=== PATIENT | male | born 1950 | race Caucasian/White ===

== ENCOUNTER → 2017-04-28 | Outpatient (CLI) | payer MEDICARE, OTHER ==
--- NOTE | 2017-04-28 18:47 | XCELERA REPORT ---
[address] [address] Transthoracic Echocardiogram Report Name: LUCI NAQVI SR Age: 67 yrs Gender: Male : 1950 Patient Status: Outpatient Patient Location: [facility] Study Date: 04/28/2017 10:13 AM Height: 66 in Weight: 196 lb BSA: 2.0 m2 Procedure: A two-dimensional transthoracic echocardiogram with color flow and Doppler was performed. Study Quality: Technically suboptimal. Reason For Study: CHEST PAIN History: CHEST PAIN. Ordering Physician: CAREN HAYNES Performed By: Milagros Fox Interpretation Summary The left ventricle is normal in size. There is normal left ventricular wall thickness. LV EF is > THAN 60% Left ventricular systolic function is normal. Doppler measurements suggest normal left ventricular diastolic function The left ventricular wall motion is normal. There is no thrombus. The right ventricle is grossly normal size. The right atrium is normal. The left atrial size is normal. There is no vegetation seen on the mitral valve. There is no mitral valve stenosis. There is a trace amount of mitral regurgitation There is no aortic valvular vegetation. There is mild aortic stenosis There is a peak gradient of OF 26 MM , AND MEAN GRADIENT OF 14 mm of Hg. There is no LVOT obstruction. No aortic regurgitation is present. There is no tricuspid stenosis. There is a trace amount of tricuspid regurgitation No significant Pulmonary Hypertension .RVSP is 32 mm of Hg, and is just above the upper limits of 30 mm of Hg. The pulmonic valve is not well visualized. There is no pericardial effusion. MMode/2D Measurements & Calculations RVDd: 2.7 cm LVIDd: 3.9 cm FS: 31.7 % Ao root diam: 2.3 cm IVSd: 1.1 cm LVIDs: 2.6 cm EDV(Teich): 64.6 ml LVPWd: 1.1 cm ESV(Teich): 25.6 ml Ao root area: 4.3 cm2 EF(Teich): 60.4 % LA dimension: 3.8 cm LVOT diam: 2.2 cm LVOT area: 3.9 cm2 Doppler Measurements & Calculations MV E max mary: MV P1/2t max mary: Ao V2 max: LV V1 max P.7 cm/sec 102.2 cm/sec 254.9 cm/sec 5.1 mmHg MV A max mary: MV P1/2t: 59.4 msec Ao max PG: LV V1 mean P.8 cm/sec MVA(P1/2t): 3.7 cm2 26.0 mmHg 2.7 mmHg MV E/A: 1.1 MV dec slope: Ao V2 mean: LV V1 max: 504.2 cm/sec2 167.0 cm/sec 113.3 cm/sec MV dec time: 0.20 secAo mean PG: LV V1 mean: 13.5 mmHg 74.6 cm/sec Ao V2 VTI: LV V1 VTI: 50.5 cm 26.3 cm MARIA ESTHER(I,D): 2.0 cm2 MARIA ESTHER(V,D): 1.7 cm2 SV(LVOT): 102.6 ml PA V2 max: TR max mary: 87.9 cm/sec 260.6 cm/sec PA max P.1 mmHg TR max P.2 mmHg Left Ventricle The left ventricle is normal in size. There is normal left ventricular wall thickness. LV EF is > THAN 60%. Left ventricular systolic function is normal. Doppler measurements suggest normal left ventricular diastolic function. The left ventricular wall motion is normal. There is no thrombus. Right Ventricle The right ventricle is grossly normal size. Atria The right atrium is normal. The left atrial size is normal. Mitral Valve There is no evidence of mitral valve prolapse. There is no vegetation seen on the mitral valve. There is no mitral valve stenosis. There is a trace amount of mitral regurgitation. Aortic Valve There is no aortic valvular vegetation. There is mild aortic stenosis. There is a peak gradient of OF 26 MM , AND MEAN GRADIENT OF 14 mm of Hg. There is no LVOT obstruction. No aortic regurgitation is present. Tricuspid Valve There is no tricuspid stenosis. There is a trace amount of tricuspid regurgitation. No significant Pulmonary Hypertension .RVSP is 32 mm of Hg, and is just above the upper limits of 30 mm of Hg. Pulmonic Valve The pulmonic valve is not well visualized. Great Vessels The aortic root is not well visualized. Effusions There is no pericardial effusion. : CAREN HAYNES > Caren Haynes
== END ==
LOC: SP 09:49
PROVIDERS: ATTEND Specialist
DX: R07.9 Chest pain, unspecified (principal)
CPT/HCPCS: 93306

== ENCOUNTER 2017-08-03 13:17 | Emergency (ER) | payer MEDICARE ==
[2017-08-03] MEDS ORDERED: KETOROLAC TROMETHAMINE 60 MG/2 ML SDV IV ONE (14:49)
[2017-08-03] MEDS ORDERED: NORMAL SALINE 1000 ML 1,000 ML IV ONE (14:49)
[2017-08-03] MEDS ORDERED: ONDANSETRON HCL INJ/PF 4 MG/2 ML SDV IV ONE (14:49)
--- NOTE | 2017-08-03 14:51 | RADIOLOGY REPORT (SQ) ---
EXAM DESCRIPTION: CHEST PA/LAT COMPLETED DATE/TIME: 08/03/2017 2:42 pm REASON FOR STUDY: cough, fever COMPARISON: 04/17/2007 EXAM PARAMETERS: NUMBER OF VIEWS: two views TECHNIQUE: Digital Frontal and Lateral radiographic views of the chest acquired. RADIATION DOSE: NA LIMITATIONS: none FINDINGS: LUNGS AND PLEURA: No opacities, masses or pneumothorax. No pleural effusion. MEDIASTINUM AND HILAR STRUCTURES: No masses or contour abnormalities. HEART AND VASCULAR STRUCTURES: Heart normal size. No evidence for failure. BONES: No acute findings. HARDWARE: None in the chest. OTHER: No other significant finding. IMPRESSION: NO SIGNIFICANT RADIOGRAPHIC FINDING IN THE CHEST. TECHNICAL DOCUMENTATION: JOB ID: [id number] [employer]- All Rights Reserved
--- NOTE | 2017-08-03 14:55 | ER Document Report ---
ED Flu Like - General Chief Complaint: Flu Symptoms Stated Complaint: FLU SYMPTOMS Time Seen by Provider: 08/03/17 14:21 Mode of Arrival: Ambulatory Information source: Patient TRAVEL OUTSIDE OF THE [place] IN LAST 30 DAYS: No - HPI Onset: Last week Severity: Moderate Notes: Patient arrives with complaints of "flulike symptoms ". States that he has been sick for the last 4 days. He reports that he has had intermittent fevers, although he has not actually taken his temperature. He is complained of nausea , but denies any vomiting. He has had some diarrhea, but denies any blood in his stools. He denies any abdominal pain. He has had a cough, he states that he is coughing up dark green sputum. Denies any blurred or loss vision, numbness tingling or weakness. He denies any chest pain. Planes of mild shortness of breath, but states that this is normal for him. He has a past medical history of hypertension, high cholesterol, diabetes. Is a former smoker who quit smoking approximately 4 months ago. Tells me that his normal heart rate is between 101 110. He denies any rashes. He did not receive a flu shot this year. States that although he is feeling better than he was a few days ago, he still feels sick. He denies any dysuria or hematuria. Denies any dizziness. He has no other complaints at this time. - Related Data Allergies/Adverse Reactions: codeine [Codeine] Allergy (Severe, Verified 08/03/17 13:19) swelling/redness Past Medical History - Social History Smoking Status: Unknown if Ever Smoked Chew tobacco use (# tins/day): No Frequency of alcohol use: None Drug Abuse: None Family History: None Patient has suicidal ideation: No Patient has homicidal ideation: No - Past Medical History Cardiac Medical History: Reports: Hx Hypercholesterolemia, Hx Hypertension - AMLODIPINE/BENAZIPRIL, HCTZ, LISINOPRIL Denies: Hx Heart Attack Pulmonary Medical History: Denies: Hx Asthma Neurological Medical History: Denies: Hx Cerebrovascular Accident, Hx Seizures Endocrine Medical History: Reports: Hx Diabetes Mellitus Type 2 Renal/ Medical History: Denies: Hx Peritoneal Dialysis GI Medical History: Reports: Hx Diverticulitis. Denies: Hx Hepatitis, Hx Hiatal Hernia, Hx Ulcer Musculoskeltal Medical History: Infectious Medical History: Denies: Hx Hepatitis Past Surgical History: Denies: Hx Open Heart Surgery, Hx Pacemaker - Immunizations Immunizations up to date: Yes Review of Systems - Review of Systems -: Yes All other systems reviewed and negative Physical Exam - Vital signs Vitals: Temp Pulse Resp BP Pulse Ox 98.3 F 109 H 18 116/99 H 97 08/03/17 13:23 08/03/17 13:23 08/03/17 13:23 08/03/17 13:23 08/03/17 13:23 - Notes Notes: GENERAL: alert, cooperative, nontoxic, no distress. HEAD: normocephalic, atraumatic EYES: conjunctiva pink without discharge, no external redness or swelling. EARS: no external swelling, no external redness. TMs pearly vazquez with no redness or perforation. NOSE: atraumatic, no external swelling MOUTH/THROAT: mucous membranes moist and pink, posterior pharynx without erythema, swelling, exudate. No trismus or drooling. NECK: soft, supple, full range of motion, no meningismus. CHEST: no distress, lungs clear and equal throughout. No wheezing, rales, rhonchi. CARDIAC: regular rate and rhythm, no murmur, normal capillary refill, normal pulses. No peripheral edema noted. ABDOMEN: Soft, nontender. No mass. No rebound tenderness or guarding. BACK: full range of motion, no CVA tenderness. EXTREMITIES: full range of motion of all extremities. No redness, no swelling. NEURO: alert and oriented x 3, no focal deficits, full range of motion of all extremities. PYSCH: appropriate mood, affect. Patient is cooperative. SKIN: pink, warm, dry, no rash. Course - Re-evaluation Re-evalutation: 08/03/17 16:18 Patient is nontoxic appearing with stable vitals. The patient is feeling better after IV fluids and Zofran. Patient states that his normal heart rate is 100 110, therefore I am not concerned about his heart rate on his vital signs. His workup in the emergency department shows no pneumonia on x-ray, lab work is unremarkable for any significant findings. His influenza screen was negative. Based on the high incidence of influenza that we are seen at this time and his age and risk factors, I will still prophylactically place him on Tamiflu. He was instructed to follow-up with his primary care doctor if he does not feel that he is improved in the next 5 days, sooner if he starts to feel worse in any way, develops higher fevers, difficulty breathing, or has any further concerns. The patient's emergency department workup and current diagnosis were explained to the patient and or family. Follow-up instructions were provided. Medications if prescribed were discussed. Instructions for when to return to the emergency department including specific worrisome symptoms were discussed with the patient and/or family. The patient is noted to have elevated blood pressure during today's emergency department visit. The patient was informed of this finding. The patient was instructed that this may be related to pre-hypertension and requires further evaluation with a primary care provider. The patient has no hypertensive symptoms at this time. - Vital Signs Vital signs: Temp Pulse Resp BP Pulse Ox 98.3 F 110 H 18 116/99 H 96 08/03/17 13:23 08/03/17 14:25 08/03/17 13:23 08/03/17 13:23 08/03/17 14:25 - Laboratory Result Diagrams: 08/03/17 15:25 08/03/17 15:25 Laboratory results interpreted by me: 08/03/17 08/03/17 15:25 15:25 WBC 13.6 H Absolute Neutrophils 9.0 H Absolute Monocytes 1.6 H Potassium 3.4 L BUN 23 H Calcium 10.7 H - Diagnostic Test Radiology reviewed: Image reviewed, Reports reviewed - Negative chest x-ray per the radiologist Discharge - Discharge Clinical Impression: Viral syndrome Condition: Stable Disposition: HOME, SELF-CARE Instructions: Influenza ([facility]) [id number], Viral Syndrome ([facility]) Additional Instructions: Take medications as prescribed. Drink plenty of water. Follow-up with your doctor if not better in 5 days, sooner for worsening symptoms, high fever, difficulty breathing, or for any further concerns. Your blood pressure was elevated during today's visit. Have this rechecked with your doctor. Prescriptions: Oseltamivir Phosphate [Tamiflu 75 mg Capsule] 75 mg PO BID #10 capsule Referrals: YARITZA ROSA MD [Primary Care Provider] - Follow up as needed
[2017-08-03 15:20] LABS: APPEARANCE,URINE CLEAR; BILIRUBIN,URINE NEGATIVE (NEGATIVE); COLOR,URINE YELLOW; GLUCOSE, URINE NEGATIVE (NEGATIVE); KETONES,URINE NEGATIVE (NEGATIVE); LEUKOCYTE ESTERASE,URINE NEGATIVE (NEGATIVE); NITRITE,URINE NEGATIVE (NEGATIVE); PROTEIN,URINE NEGATIVE (NEGATIVE); URINE SPECIFIC GRAVITY 1.014; UROBILINOGEN,URINE NEGATIVE mg/dL (<2.0)
[2017-08-03 15:33] LABS: A TYPE INFLUENZA AG NEGATIVE (NEGATIVE); B INFLUENZA AG NEGATIVE (NEGATIVE)
[2017-08-03 15:39] LABS: ABSOLUTE BASOPHILS # (AUTO) 0.1 10^3/uL (0.0-0.2); ABSOLUTE EOSINOPHILS # (AUTO) 0.4 10^3/uL (0.0-0.6); ABSOLUTE LYMPHOCYTES (AUTO) 2.5 10^3/uL (0.5-4.7); ABSOLUTE MONOCYTES (AUTO) 1.6 10^3/uL (0.1-1.4); BASOPHILS % (AUTO) 0.8 % (0-2); HEMATOCRIT 43.6 % (37.9-51.0); MEAN CORPUSCULAR HEMOGLOBIN 30.2 pg (27.0-33.4); MEAN CORPUSCULAR HGB CONC 34.4 g/dL (32.0-36.0); MEAN CORPUSCULAR VOLUME 88 fl (80-97); MONOCYTES % (AUTO) 12.1 % (3-13); PLATELET COUNT 236 10^3/uL (150-450); RED BLOOD COUNT 4.97 10^6/uL (4.35-5.55); RED CELL DISTRIBUTION WIDTH 13.5 % (11.5-14.0); SEGMENTED NEUTROPHILS % (AUTO) 66.1 % (42-78); TOTAL CELLS COUNTED % (AUTO) 100 %; WHITE BLOOD COUNT 13.6 10^3/uL (4.0-10.5)
[2017-08-03 15:57] LABS: ALANINE AMINOTRANSFERASE 40 U/L (21-72); ALBUMIN 4.5 g/dL (3.5-5.0); ALKALINE PHOSPHATASE 85 U/L (38-126); ANION GAP 14 (5-19); ASPARTATE AMINO TRANSFERASE 25 U/L (17-59); BILIRUBIN,DIRECT 0.3 mg/dL (0.0-0.4); BILIRUBIN,TOTAL 0.5 mg/dL (0.2-1.3); BLOOD UREA NITROGEN 23 mg/dL (7-20); CALCIUM 10.7 mg/dL (8.4-10.2); CARBON DIOXIDE 25 mmol/L (22-30); CHLORIDE 102 mmol/L (98-107); GLUCOSE 101 mg/dL (75-110); POTASSIUM 3.4 mmol/L (3.6-5.0); SODIUM 141.1 mmol/L (137-145); TOTAL PROTEIN 7.8 g/dL (6.3-8.2)
[2017-08-03 16:45] VITALS: BP 99/61
== END 2017-08-03 16:45 | disposition home or self-care (01) ==
LOC: ER 13:17
DX: B34.9 Viral infection, unspecified (principal); R11.0 Nausea; R19.7 Diarrhea, unspecified; R05 Cough; R06.02 Shortness of breath; I10 Essential (primary) hypertension; E11.9 Type 2 diabetes mellitus without complications; Z87.891 Personal history of nicotine dependence; Z88.5 Allergy status to narcotic agent
CPT/HCPCS: 99284; 96374; 96375; 36415; 85025; 80053; 81001; 87804; 71046; J1885; J2405; J7030

== ENCOUNTER → 2017-11-27 | Outpatient (CLI) | payer MEDICARE ==
--- NOTE | 2017-11-27 11:23 | RADIOLOGY REPORT (SQ) ---
EXAM DESCRIPTION: CHEST 2 VIEWS COMPLETED DATE/TIME: 11/27/2017 10:53 am REASON FOR STUDY: R06.02 SHORTNESS OF BREATH R07.9 CHEST PAIN, UNSPECIFIED COMPARISON: 08/03/2017 EXAM PARAMETERS: NUMBER OF VIEWS: two views TECHNIQUE: Digital Frontal and Lateral radiographic views of the chest acquired. RADIATION DOSE: NA LIMITATIONS: none FINDINGS: LUNGS AND PLEURA: No opacities, masses or pneumothorax. No pleural effusion. MEDIASTINUM AND HILAR STRUCTURES: No masses or contour abnormalities. HEART AND VASCULAR STRUCTURES: Heart normal size. No evidence for failure. BONES: No acute findings. HARDWARE: None in the chest. OTHER: No other significant finding. IMPRESSION: NO ACUTE RADIOGRAPHIC FINDING IN THE CHEST. TECHNICAL DOCUMENTATION: JOB ID: [id number] [employer]- All Rights Reserved Reading location - IP/workstation name: [email or web address]
== END ==
LOC: RAD 10:40
PROVIDERS: ATTEND Internal Medicine
DX: R07.9 Chest pain, unspecified (principal); R06.02 Shortness of breath
CPT/HCPCS: 71046

== ENCOUNTER 2018-04-15 11:05 | Emergency (ER) | payer MEDICARE ==
[2018-04-15] MEDS ORDERED: NORMAL SALINE 1000 ML 1,000 ML IV ONE (11:34)
--- NOTE | 2018-04-15 11:36 | ER Document Report ---
ED Medical Screen (RME) - General Chief Complaint: Flank Pain Stated Complaint: BACK PAIN Time Seen by Provider: 04/15/18 11:30 Notes: 68 years old male with a history of hemochromatosis, diverticulitis, diabetes, hypertension presents today with sudden onset of left flank pain radiating to the groin since Friday. Associated with nausea no vomiting. Denies any hematuria or dysuria or frequency. Denies any fever but chills on and off. Did not have any bowel movement for 2 days On examination-benign TRAVEL OUTSIDE OF THE [place] IN LAST 30 DAYS: No - Related Data Allergies/Adverse Reactions: codeine [Codeine] Allergy (Severe, Verified 04/15/18 11:05) swelling/redness Past Medical History - Past Medical History Cardiac Medical History: Reports: Hx Hypercholesterolemia, Hx Hypertension - AMLODIPINE/BENAZIPRIL, HCTZ, LISINOPRIL Denies: Hx Heart Attack Pulmonary Medical History: Denies: Hx Asthma Neurological Medical History: Denies: Hx Cerebrovascular Accident, Hx Seizures Endocrine Medical History: Reports: Hx Diabetes Mellitus Type 2 Renal/ Medical History: Denies: Hx Peritoneal Dialysis GI Medical History: Reports: Hx Diverticulitis. Denies: Hx Hepatitis, Hx Hiatal Hernia, Hx Ulcer Musculoskeltal Medical History: Infectious Medical History: Denies: Hx Hepatitis Past Surgical History: Denies: Hx Open Heart Surgery, Hx Pacemaker - Immunizations Immunizations up to date: Yes Physical Exam - Vital signs Vitals: Temp Pulse Resp BP Pulse Ox 97.9 F 78 19 129/79 H 98 04/15/18 11:09 04/15/18 11:09 04/15/18 11:09 04/15/18 11:09 04/15/18 11:09 Course - Vital Signs Vital signs: Temp Pulse Resp BP Pulse Ox 97.9 F 78 19 129/79 H 98 04/15/18 11:09 04/15/18 11:09 04/15/18 11:09 04/15/18 11:09 04/15/18 11:09 Doctor's Discharge - Discharge Referrals: YARITZA ROSA MD [Primary Care Provider] - Follow up as needed
[2018-04-15 12:09] LABS: ABSOLUTE BASOPHILS # (AUTO) 0.1 10^3/uL (0.0-0.2); ABSOLUTE EOSINOPHILS # (AUTO) 0.5 10^3/uL (0.0-0.6); ABSOLUTE LYMPHOCYTES (AUTO) 2.2 10^3/uL (0.5-4.7); ABSOLUTE MONOCYTES (AUTO) 1.1 10^3/uL (0.1-1.4); ABSOLUTE NEUT (AUTO) 7.9 10^3/uL (1.7-8.2); BASOPHILS % (AUTO) 0.6 % (0-2); EOSINOPHILS % (AUTO) 4.2 % (0-6); HEMOGLOBIN 16.2 g/dL (13.5-17.0); LYMPHOCYTES % (AUTO) 18.7 % (13-45); MEAN CORPUSCULAR HEMOGLOBIN 32.1 pg (27.0-33.4); MEAN CORPUSCULAR HGB CONC 35.2 g/dL (32.0-36.0); MEAN CORPUSCULAR VOLUME 91 fl (80-97); MONOCYTES % (AUTO) 9.4 % (3-13); PLATELET COUNT 232 10^3/uL (150-450); RED BLOOD COUNT 5.04 10^6/uL (4.35-5.55); RED CELL DISTRIBUTION WIDTH 13.3 % (11.5-14.0); SEGMENTED NEUTROPHILS % (AUTO) 67.1 % (42-78); TOTAL CELLS COUNTED % (AUTO) 100 %; WHITE BLOOD COUNT 11.7 10^3/uL (4.0-10.5)
[2018-04-15 12:11] LABS: APPEARANCE,URINE CLEAR; BILIRUBIN,URINE NEGATIVE (NEGATIVE); COLOR,URINE YELLOW; GLUCOSE, URINE NEGATIVE (NEGATIVE); KETONES,URINE NEGATIVE (NEGATIVE); LEUKOCYTE ESTERASE,URINE TRACE (NEGATIVE); NITRITE,URINE NEGATIVE (NEGATIVE); PROTEIN,URINE NEGATIVE (NEGATIVE); URINE SPECIFIC GRAVITY 1.015; UROBILINOGEN,URINE NEGATIVE mg/dL (<2.0)
[2018-04-15 12:21] LABS: ALANINE AMINOTRANSFERASE 49 U/L (21-72); ALBUMIN 4.6 g/dL (3.5-5.0); ALKALINE PHOSPHATASE 76 U/L (38-126); ANION GAP 11 (5-19); ASPARTATE AMINO TRANSFERASE 37 U/L (17-59); BILIRUBIN,DIRECT 0.5 mg/dL (0.0-0.4); BILIRUBIN,TOTAL 0.7 mg/dL (0.2-1.3); BLOOD UREA NITROGEN 15 mg/dL (7-20); CARBON DIOXIDE 29 mmol/L (22-30); CHLORIDE 100 mmol/L (98-107); GLUCOSE 117 mg/dL (75-110); LIPASE 33.1 U/L (23-300); POTASSIUM 4.1 mmol/L (3.6-5.0); SODIUM 139.9 mmol/L (137-145); TOTAL PROTEIN 8.1 g/dL (6.3-8.2)
--- NOTE | 2018-04-15 12:24 | RADIOLOGY REPORT (SQ) ---
EXAM DESCRIPTION: CT LTD RENAL STONE PROTOCOL ON COMPLETED DATE/TIME: 04/15/2018 12:07 pm REASON FOR STUDY: Left flank pain COMPARISON: None. TECHNIQUE: CT scan of the abdomen and pelvis performed without intravenous or oral contrast. Images reviewed with lung, soft tissue, and bone windows. Reconstructed coronal and sagittal MPR images revi ewed. All images stored on PACS. All CT scanners at this facility use dose modulation, iterative reconstruction, and/or weight based d osing when appropriate to reduce radiation dose to as low as reasonably achievable (ALARA). [facility]: Dose Right [facility]: CareDose [facility]: Dose Right [facility]: Teradose 4D [facility]: Smart Vivartes RADIATION DOSE: CT Rad equipment meets quality standard of care and radiation dose reduction techniq ues were employed. CTDIvol: 11.6 mGy. DLP: 612 mGy-cm.mGy. LIMITATIONS: None. FINDINGS: A 7 mm ureteral stone is present along the left mid 3rd ureter at the level of the left L3 transverse process. This causes mild left hydronephrosis and upper hydroureter and mild perinephric stranding. Elsewhere in the left kidney, no other intrarenal stones are present. No gross masses. 1 cm hemorrh agic cyst posterior left mid pole kidney axial image 32. No other ureteral calculi are present on the left. LOWER CHEST: Tiny hiatal hernia. Calcified aortic valve. NON-CONTRASTED LIVER, SPLEEN, ADRENALS: Fatty infiltration of the liver. Spleen, adrenal glands unre markable PANCREAS: No masses. No peripancreatic inflammatory changes. GALLBLADDER: No identified stones by CT criteria. No inflammatory changes to suggest cholecystitis. RIGHT KIDNEY AND URETER: No suspicious masses. Assessment limited by lack of IV contrast. No signif icant calcifications. No hydronephrosis or hydroureter. LEFT KIDNEY AND URETER: As above AORTA AND RETROPERITONEUM: No aneurysm. No retroperitoneal masses or adenopathy. BOWEL AND PERITONEAL CAVITY: No obvious masses or inflammatory changes. No free fluid. Colon diverti culi without CT signs of acute diverticulitis APPENDIX: Normal. PELVIS, BLADDER, AND ABDOMINAL WALL:No abnormal masses. No free fluid. Bladder normal. BONES: No significant findings. OTHER: No other significant finding. IMPRESSION: 7 mm left mid 3rd ureteral calculus causing mild left hydronephrosis and upper hydrouret er COMMENT: Quality ID # [id number]: Final reports with documentation of one or more dose reduction techniques (e.g., Automated exposure control, adjustment of the mA and/or kV according to patient size, use of iterative reconstruction technique) TECHNICAL DOCUMENTATION: JOB ID: [id number] [employer]- All Rights Reserved Reading location - IP/workstation name: [email or web address]
--- NOTE | 2018-04-15 12:39 | ER Document Report ---
ED General - General Chief Complaint: Flank Pain Stated Complaint: BACK PAIN Time Seen by Provider: 04/15/18 11:30 TRAVEL OUTSIDE OF THE [place] IN LAST 30 DAYS: No - HPI Notes: Patient is a 68-year-old male that presents to the emergency department for chief complaint of left flank pain. Patient reports constant pain in his left low flank that radiates into his left lower quadrant for the last 2 days. He states he had a pain similar 4 days ago that completely resolved and then recurred. He reports associated nausea but denies any vomiting. He denies fevers or chills. He states he has had kidney stones as a child but has not had any in 40+ years. He denies any dysuria or hematuria Past Medical History: Hypertension, hyperlipidemia, diabetes, hemochromatosis Past Surgical History: Neck cyst removal Social History: Denies drugs alcohol and tobacco Family History: Reviewed and noncontributory for presenting illness Allergies: Reviewed, see documented allergy list. REVIEW OF SYSTEMS: CONSTITUTIONAL : No fever No chills No diaphoresis No recent illness EENT: No vision changes No congestion No sore throat CARDIOVASCULAR: No chest pain No palpitations RESPIRATORY: No shortness of breath No cough No difficulty breathing GASTROINTESTINAL: No abdominal pain nausea No vomiting No diarrhea Left flank pain GENITOURINARY: No dysuria No hematuria No difficulty urinating MUSCULOSKELETAL: No back pain No leg pain No arm pain SKIN: No rashes No lesions LYMPHATIC: No swollen, enlarged glands. NEUROLOGICAL: No lightheadedness No headache No weakness No paresthesias PSYCHIATRIC: No anxiety No depression PHYSICAL EXAMINATION: Vital signs reviewed, nursing noted reviewed. GENERAL: Well-appearing, well-nourished and in no acute distress. HEAD: Atraumatic, normocephalic. EYES: Eyes appear normal, extraocular movements intact, sclera anicteric, conjunctiva are normal. ENT: nares patent, oropharynx clear without exudates. Moist mucous membranes. NECK: Normal range of motion, supple without lymphadenopathy LUNGS: Breath sounds clear to auscultation bilaterally and equal. No wheezes rales or rhonchi. HEART: Regular rate and rhythm without murmurs ABDOMEN: Left CVA tenderness, Soft, abdomen nontender, normoactive bowel sounds. No rebound, guarding, or rigidity. No masses appreciated. EXTREMITIES: Nontender, good range of motion, no pitting or edema. NEUROLOGICAL: No focal neurological deficits. Moves all extremities spontaneously Motor and sensory grossly intact on exam. PSYCH: Normal mood, normal affect. SKIN: Warm, Dry, normal turgor, no rashes or lesions noted on exposed skin - Related Data Allergies/Adverse Reactions: codeine [Codeine] Allergy (Severe, Verified 04/15/18 11:05) swelling/redness Past Medical History - Social History Smoking Status: Former Smoker Family History: None Patient has suicidal ideation: No Patient has homicidal ideation: No - Past Medical History Cardiac Medical History: Reports: Hx Hypercholesterolemia, Hx Hypertension - AMLODIPINE/BENAZIPRIL, HCTZ, LISINOPRIL Denies: Hx Heart Attack Pulmonary Medical History: Denies: Hx Asthma Neurological Medical History: Denies: Hx Cerebrovascular Accident, Hx Seizures Endocrine Medical History: Reports: Hx Diabetes Mellitus Type 2 Renal/ Medical History: Denies: Hx Peritoneal Dialysis GI Medical History: Reports: Hx Diverticulitis. Denies: Hx Hepatitis, Hx Hiatal Hernia, Hx Ulcer Musculoskeletal Medical History: Infectious Medical History: Denies: Hx Hepatitis Past Surgical History: Denies: Hx Open Heart Surgery, Hx Pacemaker - Immunizations Immunizations up to date: Yes Review of Systems - Review of Systems Notes: Dictated Physical Exam - Vital signs Vitals: Temp Pulse Resp BP Pulse Ox 97.9 F 78 19 129/79 H 98 04/15/18 11:09 04/15/18 11:09 04/15/18 11:09 04/15/18 11:09 04/15/18 11:09 - Notes Notes: Dictated Course - Re-evaluation Re-evalutation: 04/15/18 12:39 Vitals reviewed and stable. Patient given IV hydration. He is declining any further pain medication. CT scan shows 7 mm left ureterolithiasis. There is no renal failure or urinary tract infection. Patient will be given strainer, Flomax, and Percocet. He was referred to urology for close follow-up if symptoms are not resolving. Discharged home in stable condition. Laboratory 04/15/18 04/15/18 04/15/18 11:49 11:49 11:49 WBC 11.7 H RBC 5.04 Hgb 16.2 Hct 46.0 MCV 91 MCH 32.1 MCHC 35.2 RDW 13.3 Plt Count 232 Seg Neutrophils % 67.1 Lymphocytes % 18.7 Monocytes % 9.4 Eosinophils % 4.2 Basophils % 0.6 Absolute Neutrophils 7.9 Absolute Lymphocytes 2.2 Absolute Monocytes 1.1 Absolute Eosinophils 0.5 Absolute Basophils 0.1 Sodium 139.9 Potassium 4.1 Chloride 100 Carbon Dioxide 29 Anion Gap 11 BUN 15 Creatinine 0.84 Est GFR ( Amer) > 60 Est GFR (Non-Af Amer) > 60 Glucose 117 H Calcium 10.0 Total Bilirubin 0.7 Direct Bilirubin 0.5 H Neonat Total Bilirubin Not Reportable Neonat Direct Bilirubin Not Reportable Neonat Indirect Bili Not Reportable AST 37 ALT 49 Alkaline Phosphatase 76 Total Protein 8.1 Albumin 4.6 Lipase 33.1 Urine Color YELLOW Urine Appearance CLEAR Urine pH 6.0 Ur Specific [place] 1.015 Urine Protein NEGATIVE Urine Glucose (UA) NEGATIVE Urine Ketones NEGATIVE Urine Blood SMALL H Urine Nitrite NEGATIVE Urine Bilirubin NEGATIVE Urine Urobilinogen NEGATIVE Ur Leukocyte Esterase TRACE H Urine WBC (Auto) 2 Urine RBC (Auto) 10 Squamous Epi Cells Auto <1 Urine Mucus (Auto) OCC Urine Ascorbic Acid NEGATIVE Limited or Localized CT 04/15/18 11:35 IMPRESSION: 7 mm left mid 3rd ureteral calculus causing mild left hydronephrosis and upper hydroureter - Vital Signs Vital signs: Temp Pulse Resp BP Pulse Ox 97.9 F 78 19 129/79 H 98 04/15/18 11:09 04/15/18 11:09 04/15/18 11:09 04/15/18 11:09 04/15/18 11:09 - Laboratory Result Diagrams: 04/15/18 11:49 04/15/18 11:49 Laboratory results interpreted by me: 04/15/18 04/15/18 04/15/18 11:49 11:49 11:49 WBC 11.7 H Glucose 117 H Direct Bilirubin 0.5 H Urine Blood SMALL H Ur Leukocyte Esterase TRACE H Discharge - Discharge Clinical Impression: Ureterolithiasis Condition: Stable Disposition: HOME, SELF-CARE Instructions: Kidney Stone ([facility]) Additional Instructions: Please return to the emergency department if you have any worsening, or concern of your symptoms. Please return to the emergency department if you develop chest pain, difficulty breathing, severe abdominal pain, or ongoing vomiting. Please follow-up with your primary care physician in 2-3 days and any other recommended physicians. If prescribed, take all medications as directed. If you have any questions or concerns do not hesitate to return the emergency department for evaluation. [] Prescriptions: Oxycodone HCl/Acetaminophen [Percocet 5-325 mg Tablet] 1 tab PO Q4 PRN #15 tab PRN Reason: Pain Scale Of 5 Tamsulosin HCl [Flomax 0.4 mg Cap.sr] 0.4 mg PO DAILY #7 cap.sr.24h Referrals: [facility] [Provider Group] - Follow up in 3-5 days YARITZA ROSA MD [Primary Care Provider] - Follow up as needed
[2018-04-15] MEDS ORDERED: KETOROLAC TROMETHAMINE INJ/PF 30 MG/1 ML SDV IV ONE (12:41)
[2018-04-15 13:04] VITALS: BP 138/81
== END 2018-04-15 13:02 | disposition home or self-care (01) ==
LOC: ER 11:05
DX: N13.2 Hydronephrosis with renal and ureteral calculous obstruction (principal); R11.0 Nausea; I10 Essential (primary) hypertension; E11.9 Type 2 diabetes mellitus without complications; Z87.891 Personal history of nicotine dependence
CPT/HCPCS: 99284; 96361; 96374; 36415; 83690; 85025; 80053; 81001; 76380; J1885

== ENCOUNTER 2019-05-08 14:50 | Observation (INO) | payer MEDICARE ==
--- NOTE | 2019-05-08 15:09 | ER Document Report ---
ED Medical Screen (RME) - General Chief Complaint: Facial Droop Stated Complaint: NUMBNESS Time Seen by Provider: 05/08/19 15:01 Primary Care Provider: YARITZA ROSA MD [Primary Care Provider] - Follow up as needed Mode of Arrival: Ambulatory Information source: Patient Notes: Patient presents with concern about possible stroke. Patient states that he was walking in the patel up around 130 and felt like he was having numbness to the right side of the face and the left upper extremity. Patient also had headache at the time but is uncertain if the headache was due to hunger. Patient states that family felt as though he had right facial drooping. Patient states that after eating lunch his headache resolved. hx: Diabetes, hypertension, hemochromatosis, calcifications in the heart I have greeted and performed a rapid initial assessment of this patient. A comprehensive ED assessment and evaluation of the patient, analysis of test results and completion of the medical decision making process will be conducted by additional ED providers. TRAVEL OUTSIDE OF THE [place] IN LAST 30 DAYS: No - Related Data Allergies/Adverse Reactions: codeine [Codeine] Allergy (Severe, Verified 04/15/18 11:05) swelling/redness Past Medical History - Past Medical History Cardiac Medical History: Reports: Hx Hypercholesterolemia, Hx Hypertension - AMLODIPINE/BENAZIPRIL, HCTZ, LISINOPRIL Denies: Hx Heart Attack Pulmonary Medical History: Denies: Hx Asthma Neurological Medical History: Denies: Hx Cerebrovascular Accident, Hx Seizures Endocrine Medical History: Reports: Hx Diabetes Mellitus Type 2 Renal/ Medical History: Denies: Hx Peritoneal Dialysis GI Medical History: Reports: Hx Diverticulitis. Denies: Hx Hepatitis, Hx Hiatal Hernia, Hx Ulcer Musculoskeltal Medical History: Infectious Medical History: Denies: Hx Hepatitis Past Surgical History: Denies: Hx Open Heart Surgery, Hx Pacemaker - Immunizations Immunizations up to date: Yes Physical Exam - Vital signs Vitals: Temp Pulse Resp BP Pulse Ox 97.5 F 105 H 16 102/67 97 05/08/19 14:58 05/08/19 14:58 05/08/19 14:58 05/08/19 14:58 05/08/19 14:58 - General General appearance: Appears well, Alert Notes: No obvious facial droop, patient does have fullness concerning for swelling to the right lower mandibular area, altered sensation right side of face and left upper arm - Neurological Cognition: Normal Yamilet Coma Scale Eye Opening: Spontaneous [place] Coma Scale Verbal: Oriented [place] Coma Scale Motor: Obeys Commands [place] Coma Scale Total: 15 Speech: Normal Cranial nerves: Normal. No: Facial palsy Course - Vital Signs Vital signs: Temp Pulse Resp BP Pulse Ox 97.5 F 105 H 16 102/67 97 05/08/19 14:58 05/08/19 14:58 05/08/19 14:58 05/08/19 14:58 05/08/19 14:58 Doctor's Discharge - Discharge Referrals: YARITZA ROSA MD [Primary Care Provider] - Follow up as needed
--- NOTE | 2019-05-08 15:25 | RADIOLOGY REPORT (SQ) ---
EXAM DESCRIPTION: CHEST SINGLE VIEW COMPLETED DATE/TIME: 05/08/2019 3:12 pm REASON FOR STUDY: R facial numbness, LUE numb COMPARISON: 11/27/2017 EXAM PARAMETERS: NUMBER OF VIEWS: One view. TECHNIQUE: Single frontal radiographic view of the chest acquired. RADIATION DOSE: NA LIMITATIONS: None. FINDINGS: LUNGS AND PLEURA: No opacities, masses or pneumothorax. No pleural effusion. MEDIASTINUM AND HILAR STRUCTURES: No masses. Contour normal. HEART AND VASCULAR STRUCTURES: Heart normal in size. Normal vasculature. BONES: No acute findings. HARDWARE: None in the chest. OTHER: No other significant finding. IMPRESSION: NO ACUTE RADIOGRAPHIC FINDING IN THE CHEST. TECHNICAL DOCUMENTATION: JOB ID: [id number] [employer]- All Rights Reserved Reading location - IP/workstation name: [email or web address]
--- NOTE | 2019-05-08 15:42 | RADIOLOGY REPORT (SQ) ---
EXAM DESCRIPTION: CT HEAD WITHOUT COMPLETED DATE/TIME: 05/08/2019 3:28 pm REASON FOR STUDY: R facial numbness, LUE numb COMPARISON: None. TECHNIQUE: Axial images acquired through the brain without intravenous contrast. Images reviewed wi th bone, brain and subdural windows. Additional sagittal and coronal reconstructions were generated. Images stored on PACS. All CT scanners at this facility use dose modulation, iterative reconstruction, and/or weight based d osing when appropriate to reduce radiation dose to as low as reasonably achievable (ALARA). [facility]: Dose Right [facility]: CareDose [facility]: Dose Right [facility]: Teradose 4D [facility]: Smart [employer] RADIATION DOSE: 1043 mGy cm LIMITATIONS: None. FINDINGS: VENTRICLES: Normal size and contour. CEREBRUM: No masses. No hemorrhage. No midline shift. There is generally mild white matter hypoden sity with a more focal area in the posterior right hull radiata (series 2, image 20). CEREBELLUM: No masses. No hemorrhage. No alteration of density. No evidence for acute infarction. EXTRAAXIAL SPACES: No fluid collections. No masses. ORBITS AND GLOBE: No intra- or extraconal masses. Normal contour of globe without masses. CALVARIUM: No fracture. PARANASAL SINUSES: No fluid or mucosal thickening. SOFT TISSUES: No mass or hematoma. OTHER: No other significant finding. IMPRESSION: There is generally mild white matter hypodensity with a more focal area in the posterior right hull radiata (series 2, image 20). Although such lesions are in general likely to represent chronic small vessel white matter disease, this particular area corresponds to stated clinical sympt omatology. Consider MRI to more sensitively evaluate for acute diffusion restricting infarction EVIDENCE OF ACUTE STROKE: NO. COMMENT: Quality ID # [id number]: Final reports with documentation of one or more dose reduction techniques (e.g., Automated exposure control, adjustment of the mA and/or kV according to patient size, use of iterative reconstruction technique) TECHNICAL DOCUMENTATION: JOB ID: [id number] [employer]- All Rights Reserved Reading location - IP/workstation name: [email or web address]
[2019-05-08 16:09] LABS: ABSOLUTE BASOPHILS # (AUTO) 0.2 10^3/uL (0.0-0.2); ABSOLUTE EOSINOPHILS # (AUTO) 0.4 10^3/uL (0.0-0.6); ABSOLUTE LYMPHOCYTES (AUTO) 2.6 10^3/uL (0.5-4.7); ABSOLUTE MONOCYTES (AUTO) 1.4 10^3/uL (0.1-1.4); ABSOLUTE NEUT (AUTO) 9.3 10^3/uL (1.7-8.2); BASOPHILS % (AUTO) 1.3 % (0-2); EOSINOPHILS % (AUTO) 2.6 % (0-6); HEMATOCRIT 49.6 % (37.9-51.0); HEMOGLOBIN 16.8 g/dL (13.5-17.0); INTERNATIONAL RATION (INR) 1.02; LYMPHOCYTES % (AUTO) 18.7 % (13-45); MEAN CORPUSCULAR HEMOGLOBIN 30.7 pg (27.0-33.4); MEAN CORPUSCULAR HGB CONC 33.9 g/dL (32.0-36.0); MEAN CORPUSCULAR VOLUME 91 fl (80-97); MONOCYTES % (AUTO) 10.3 % (3-13); PARTIAL THROMBOPLASTIN TIME 29.6 SEC (23.5-35.8); PLATELET COUNT 235 10^3/uL (150-450); PROTHROMBIN TIME 13.4 SEC (11.4-15.4); RED BLOOD COUNT 5.47 10^6/uL (4.35-5.55); RED CELL DISTRIBUTION WIDTH 13.5 % (11.5-14.0); SEGMENTED NEUTROPHILS % (AUTO) 67.1 % (42-78); TOTAL CELLS COUNTED % (AUTO) 100 %; WHITE BLOOD COUNT 13.9 10^3/uL (4.0-10.5)
[2019-05-08] MEDS ORDERED: NORMAL SALINE 1000 ML 1,000 ML IV ONE (16:11)
[2019-05-08 16:28] LABS: ALBUMIN 4.9 g/dL (3.5-5.0); ALKALINE PHOSPHATASE 86 U/L (38-126); ANION GAP 15 (5-19); ASPARTATE AMINO TRANSFERASE 42 U/L (17-59); BILIRUBIN,DIRECT 0.1 mg/dL (0.0-0.4); BILIRUBIN,TOTAL 0.5 mg/dL (0.2-1.3); BLOOD UREA NITROGEN 25 mg/dL (7-20); CALCIUM 10.9 mg/dL (8.4-10.2); CARBON DIOXIDE 28 mmol/L (22-30); CHLORIDE 98 mmol/L (98-107); CREATINE KINASE 140 U/L (55-170); GLUCOSE 167 mg/dL (75-110); POTASSIUM 3.9 mmol/L (3.6-5.0); TOTAL PROTEIN 8.7 g/dL (6.3-8.2)
[2019-05-08 16:38] LABS: CREATINE KINASE MB 1.44 ng/mL (<4.55)
[2019-05-08 16:39] LABS: TROPONIN I < 0.012 ng/mL
[2019-05-08] MEDS ORDERED: ASPIRIN 81 MG TABLET, CHEWABLE PO ONE (16:42)
--- NOTE | 2019-05-08 16:51 | ER Document Report ---
ED Neuro Symptoms/Deficit - General Chief Complaint: Facial Droop Stated Complaint: NUMBNESS Time Seen by Provider: 05/08/19 15:01 Mode of Arrival: Ambulatory Notes: RME NOTE: Patient presents with concern about possible stroke. Patient states that he was walking in the patel up around 130 and felt like he was having numbness to the right side of the face and the left upper extremity. Patient also had headache at the time but is uncertain if the headache was due to hunger. Patient states that family felt as though he had right facial drooping. Patient states that after eating lunch his headache resolved. MY HPI: Patient is a 61-year-old male history of type 2 diabetes, hypertension, hyperlipidemia, hemochromatosis presents to the emergency department for concerns of a stroke. Patient states that approximately 1330 this afternoon he was in the patel. States he is a kiana. States he noticed some numbness to the right side of his face as well as some numbness to the left upper arm. Patient voices when he inevitably got back to the car he looked in the mirror and felt as though his right side had a facial droop. Family in the room also noted patient had slurred speech at that time. Patient was complaining of a generalized headache. States he was thought he was hungry so he ate something. States he no longer had a headache and the numbness in the left arm had resolved. Patient's denying any chest pain, shortness of breath, diaphoresis. Upon my examination patient has a NIH scale of 0. Patient's states that the right lower cheek looks "puffy." She is denying any facial droop at this time. Patient does not have any teeth the back right lower side. Is denying any dental pain, gum pain. Patient voices he is out in the patel often because he is a kiana. Patient's denying any tick bites or finding any ticks on his body. TRAVEL OUTSIDE OF THE [place] IN LAST 30 DAYS: No - Related Data Allergies/Adverse Reactions: codeine [Codeine] Allergy (Severe, Verified 04/15/18 11:05) swelling/redness Past Medical History - General Information source: Patient - Social History Smoking Status: Unknown if Ever Smoked Family History: None Patient has suicidal ideation: No Patient has homicidal ideation: No - Past Medical History Cardiac Medical History: Reports: Hx Hypercholesterolemia, Hx Hypertension - AMLODIPINE/BENAZIPRIL, HCTZ, LISINOPRIL Denies: Hx Heart Attack Pulmonary Medical History: Denies: Hx Asthma Neurological Medical History: Denies: Hx Cerebrovascular Accident, Hx Seizures Endocrine Medical History: Reports: Hx Diabetes Mellitus Type 2 Renal/ Medical History: Denies: Hx Peritoneal Dialysis GI Medical History: Reports: Hx Diverticulitis. Denies: Hx Hepatitis, Hx Hiatal Hernia, Hx Ulcer Musculoskeletal Medical History: Infectious Medical History: Denies: Hx Hepatitis Past Surgical History: Denies: Hx Open Heart Surgery, Hx Pacemaker - Immunizations Immunizations up to date: Yes Review of Systems - Review of Systems Constitutional: denies: Fever EENT: See HPI Cardiovascular: See HPI Respiratory: See HPI Gastrointestinal: No symptoms reported Genitourinary: No symptoms reported Male Genitourinary: No symptoms reported Musculoskeletal: See HPI Skin: No symptoms reported Hematologic/Lymphatic: No symptoms reported Neurological/Psychological: See HPI Physical Exam - Vital signs Vitals: Temp Pulse Resp BP Pulse Ox 97.5 F 105 H 16 102/67 97 05/08/19 14:58 05/08/19 14:58 05/08/19 14:58 05/08/19 14:58 05/08/19 14:58 - Notes Notes: GENERAL: Alert, interacts well. No acute distress. HEAD: Normocephalic, atraumatic. EYES: Pupils equal, round, and reactive to light. Extraocular movements intact. ENT: Oral mucosa moist, tongue midline. NECK: Full range of motion. Supple. Trachea midline. LUNGS: Clear to auscultation bilaterally, no wheezes, rales, or rhonchi. No respiratory distress. HEART: Regular rate and rhythm. No murmur ABDOMEN: Soft, non-tender. Non-distended. Bowel sounds present in all 4 quadrants. EXTREMITIES: Moves all 4 extremities spontaneously. No edema, normal radial and dorsalis pedis pulses bilaterally. No cyanosis. 5 out of 5 strength noted all 4 extremities. BACK: no cervical, thoracic, lumbar midline tenderness. No saddle anesthesia, normal distal neurovascular exam. NEUROLOGICAL: Alert and oriented x3. Normal speech. cranial nerves II through XII grossly intact. PSYCH: Normal affect, normal mood. SKIN: Warm, dry, normal turgor. No rashes or lesions noted. NIH scale 0 Course - Re-evaluation Re-evalutation: 05/08/19 16:55 Laboratory 05/08/19 05/08/19 05/08/19 15:46 15:50 15:50 WBC 13.9 H RBC 5.47 Hgb 16.8 Hct 49.6 MCV 91 MCH 30.7 MCHC 33.9 RDW 13.5 Plt Count 235 Lymph % (Auto) 18.7 [place] % (Auto) 10.3 Eos % (Auto) 2.6 Baso % (Auto) 1.3 Absolute Neuts (auto) 9.3 H Absolute Lymphs (auto) 2.6 Absolute Monos (auto) 1.4 Absolute Eos (auto) 0.4 Absolute Basos (auto) 0.2 Seg Neutrophils % 67.1 PT 13.4 INR 1.02 APTT 29.6 Sodium Potassium Chloride Carbon Dioxide Anion Gap BUN Creatinine Est GFR ( Amer) Est GFR (MDRD) Non-Af Glucose POC Glucose 162 H Calcium Total Bilirubin Direct Bilirubin Neonat Total Bilirubin Neonat Direct Bilirubin Neonat Indirect Bili AST ALT Alkaline Phosphatase Creatine Kinase CK-MB (CK-2) Troponin I Total Protein Albumin 05/08/19 05/08/19 15:50 15:50 WBC RBC Hgb Hct MCV MCH MCHC RDW Plt Count Lymph % (Auto) [place] % (Auto) Eos % (Auto) Baso % (Auto) Absolute Neuts (auto) Absolute Lymphs (auto) Absolute Monos (auto) Absolute Eos (auto) Absolute Basos (auto) Seg Neutrophils % PT INR APTT Sodium 140.7 Potassium 3.9 Chloride 98 Carbon Dioxide 28 Anion Gap 15 BUN 25 H Creatinine 1.49 H Est GFR ( Amer) 57 L Est GFR (MDRD) Non-Af 47 L Glucose 167 H POC Glucose Calcium 10.9 H Total Bilirubin 0.5 Direct Bilirubin 0.1 Neonat Total Bilirubin Not Reportable Neonat Direct Bilirubin Not Reportable Neonat Indirect Bili Not Reportable AST 42 ALT 57 Alkaline Phosphatase 86 Creatine Kinase 140 CK-MB (CK-2) 1.44 Troponin I < 0.012 Total Protein 8.7 H Albumin 4.9 Chest X-Ray 05/08/19 15:06 IMPRESSION: NO ACUTE RADIOGRAPHIC FINDING IN THE CHEST. Head CT 05/08/19 15:06 IMPRESSION: There is generally mild white matter hypodensity with a more focal area in the posterior right hull radiata (series 2, image 20). Although such lesions are in general likely to represent chronic small vessel white matter disease, this particular area corresponds to stated clinical symptomatology. Consider MRI to more sensitively evaluate for acute diffusion restricting infarction EVIDENCE OF ACUTE STROKE: NO. I have discussed this case with Donny Edwards NP who will admit the pt. under Dr. Bernal. Pt stable for admit. - Vital Signs Vital signs: Temp Pulse Resp BP Pulse Ox 97.5 F 97 16 118/74 95 05/08/19 14:58 05/08/19 17:24 05/08/19 17:24 05/08/19 17:24 05/08/19 17:24 - Laboratory Result Diagrams: 05/08/19 15:50 05/08/19 15:50 Laboratory results interpreted by me: 05/08/19 05/08/19 05/08/19 15:46 15:50 15:50 WBC 13.9 H Absolute Neuts (auto) 9.3 H BUN 25 H Creatinine 1.49 H Est GFR ( Amer) 57 L Est GFR (MDRD) Non-Af 47 L Glucose 167 H POC Glucose 162 H Calcium 10.9 H Total Protein 8.7 H 05/08/19 17:17 WBC Absolute Neuts (auto) BUN Creatinine Est GFR ( Amer) Est GFR (MDRD) Non-Af Glucose POC Glucose 162 H Calcium Total Protein Discharge - Discharge Clinical Impression: TIA (transient ischemic attack) Condition: Stable Disposition: ADMITTED INPATIENT Admitting Provider: Gabe (Hospitalist) Unit Admitted: [facility]
[2019-05-08] MEDS ORDERED: MAGNESIUM HYDROXIDE SUSP 30 ML UDCUP PO PRN (17:27)
[2019-05-08] MEDS ORDERED: ACETAMINOPHEN 325 MG TABLET PO PRN (17:27)
[2019-05-08] MEDS ORDERED: TEMAZEPAM 15 MG CAPSULE PO PRN (17:27)
[2019-05-08] MEDS ORDERED: ONDANSETRON HCL INJ/PF 4 MG/2 ML SDV IV PRN (17:27)
[2019-05-08] MEDS ORDERED: DEXTROSE 40% GEL 15 GM TUBE PO PRN ×2 (17:32)
[2019-05-08] MEDS ORDERED: GLUCAGON,HUMAN RECOMB 1 MG INJ IM PRN (17:32)
[2019-05-08] MEDS ORDERED: DEXTROSE 50%-WATER 25 GM/50 ML DISP.SYRIN IV PRN ×2 (17:32)
--- NOTE | 2019-05-08 17:37 | PDOC H&P ---
History of Present Illness Admission Date/PCP: 05/08/19 17:24 YARITZA ROSA MD Patient complains of: None at this time History of Present Illness: LUCI NAQVI is a 69 year old male with possible stroke. Patient states he was walking in the patel around 130 and felt like he does have numbness to the right side of his face and left upper extremity. Patient also had a headache at that time but uncertain if the headache was due to hunger. Patient had no gino atment prior to arrival no aggravating factors. Past Medical History Cardiac Medical History: Reports: Hyperlipidema, Hypertension - AMLODIPINE/BENAZIPRIL, HCTZ, LISINOPRIL Denies: Myocardial Infarction Pulmonary Medical History: Denies: Asthma Neurological Medical History: Denies: Seizures Endocrine Medical History: Reports: Diabetes Mellitus Type 2 GI Medical History: Reports: Diverticulitis Denies: Hepatitis, Hiatal Hernia Musculoskeltal Medical History: Hematology: Denies: Anemia - HAS TOO MUCH IRON IN BLOOD, DRAWS 1 PINT BLOOD Q 2WKS, Sickle Cell Disease Past Surgical History Past Surgical History: Denies: Pacemaker Social History Information Source: Patient Lives with: Family Smoking Status: Never Smoker Electronic Cigarette use?: No Frequency of Alcohol Use: None Hx Recreational Drug Use: No Drugs: None Hx Prescription Drug Abuse: No - Advance Directive Resuscitation Status: Full Code Family History Family History: Hypertension Parental Family History Reviewed: Yes Children Family History Reviewed: Yes Sibling(s) Family History Reviewed.: Yes Medication/Allergy Home Medications: Amlodipine Besylate/Benazepril [Amlodipine-Benazepril 5-10 mg] 1 cap PO DAILY 11/11/12 Aspirin [Ecotrin 81 mg EC Tablet] 81 mg PO DAILY 11/11/12 Atorvastatin Calcium [Lipitor 40 mg Tablet] 40 mg PO QHS 11/11/12 Hydrochlorothiazide [Hydrodiuril 12.5 mg Capsule] 12.5 mg PO QAM 11/11/12 Lisinopril [Prinivil 40 mg Tablet] 40 mg PO DAILY 11/11/12 Metformin HCl [Glucophage 500 Mg Tablet] 500 mg PO BID 11/11/12 [place]-3 Fatty Acids/Fish Oil [Fish Oil 1,000 Mg Capsule] 4 each PO DAILY 11/11/12 Clindamycin HCl [Cleocin 150 mg Capsule] 450 mg PO TID #90 capsule 12/01/12 Oxycodone HCl/Acetaminophen [Percocet 5-325 mg Tablet] 1 - 2 tab PO ASDIR PRN #20 tablet 12/01/12 Oseltamivir Phosphate [Tamiflu 75 mg Capsule] 75 mg PO BID #10 capsule 08/03/17 Oxycodone HCl/Acetaminophen [Percocet 5-325 mg Tablet] 1 tab PO Q4 PRN #15 tab 04/15/18 Tamsulosin HCl [Flomax 0.4 mg Cap.sr] 0.4 mg PO DAILY #7 cap.sr.24h 04/15/18 Allergies/Adverse Reactions: codeine [Codeine] Allergy (Severe, Verified 04/15/18 11:05) swelling/redness Review of Systems Constitutional: PRESENT: headache(s). ABSENT: chills, fever(s), weight gain, weight loss Eyes: ABSENT: visual disturbances Ears: ABSENT: hearing changes Cardiovascular: ABSENT: chest pain, dyspnea on exertion, edema, orthropnea, palpitations Respiratory: ABSENT: cough, hemoptysis Gastrointestinal: ABSENT: abdominal pain, constipation, diarrhea, hematemesis, hematochezia, nausea, vomiting Genitourinary: ABSENT: dysuria, hematuria Musculoskeletal: ABSENT: joint swelling Integumentary: ABSENT: rash, wounds Neurological: PRESENT: numbness. ABSENT: abnormal gait, abnormal speech, confusion, dizziness, focal weakness, syncope Psychiatric: ABSENT: anxiety, depression, homidical ideation, suicidal ideation Endocrine: ABSENT: cold intolerance, heat intolerance, polydipsia, polyuria Hematologic/Lymphatic: ABSENT: easy bleeding, easy bruising Physical Exam Vital Signs: Temp Pulse Resp BP Pulse Ox 97.5 F 97 16 118/74 95 05/08/19 14:58 05/08/19 17:24 05/08/19 17:24 05/08/19 17:24 05/08/19 17:24 Intake & Output 05/07/19 05/08/19 05/09/19 06:59 06:59 06:59 Weight 86.2 kg General appearance: PRESENT: no acute distress, well-developed, well-nourished Head exam: PRESENT: atraumatic, normocephalic Eye exam: PRESENT: conjunctiva pink, EOMI, PERRLA. ABSENT: scleral icterus Ear exam: PRESENT: normal external ear exam Mouth exam: PRESENT: moist, tongue midline Neck exam: ABSENT: carotid bruit, JVD, lymphadenopathy, thyromegaly Respiratory exam: PRESENT: clear to auscultation [place]. ABSENT: rales, rhonchi, wheezes Cardiovascular exam: PRESENT: RRR. ABSENT: diastolic murmur, rubs, systolic murmur Pulses: PRESENT: normal dorsalis pedis pul Vascular exam: PRESENT: normal capillary refill GI/Abdominal exam: PRESENT: normal bowel sounds, soft. ABSENT: distended, guarding, mass, organolmegaly, rebound, tenderness Rectal exam: PRESENT: deferred Extremities exam: PRESENT: full ROM. ABSENT: calf tenderness, clubbing, pedal edema Neurological exam: PRESENT: alert, awake, oriented to person, oriented to place, oriented to time, oriented to situation, CN II-XII grossly intact. ABSENT: m otor sensory deficit Psychiatric exam: PRESENT: appropriate affect, normal mood. ABSENT: homicidal ideation, suicidal ideation Skin exam: PRESENT: dry, intact, warm. ABSENT: cyanosis, rash Results Laboratory Results: 05/08/19 15:50 05/08/19 15:50 05/08/19 05/08/19 15:50 15:50 WBC 13.9 H RBC 5.47 Hgb 16.8 Hct 49.6 MCV 91 MCH 30.7 MCHC 33.9 RDW 13.5 Plt Count 235 Seg Neutrophils % 67.1 Sodium 140.7 Potassium 3.9 Chloride 98 Carbon Dioxide 28 Anion Gap 15 BUN 25 H Creatinine 1.49 H Est GFR ( Amer) 57 L Glucose 167 H Calcium 10.9 H Total Bilirubin 0.5 AST 42 Alkaline Phosphatase 86 Total Protein 8.7 H Albumin 4.9 05/08/19 05/08/19 15:50 15:50 Creatine Kinase 140 CK-MB (CK-2) 1.44 Troponin I < 0.012 Impressions: Chest X-Ray 05/08/19 15:06 IMPRESSION: NO ACUTE RADIOGRAPHIC FINDING IN THE CHEST. Head CT 05/08/19 15:06 IMPRESSION: There is generally mild white matter hypodensity with a more focal area in the posterior right hull radiata (series 2, image 20). Although such lesions are in general likely to represent chronic small vessel white matter disease, this particular area corresponds to stated clinical symptomatology. Consider MRI to more sensitively evaluate for acute diffusion restricting infarction EVIDENCE OF ACUTE STROKE: NO. Assessment and Plan - Diagnosis (1) TIA (transient ischemic attack) Is this a current diagnosis for this admission?: Yes Plan: 05/08/2019-admit to IMCU. Aspirin 325 mg p.o. daily. Lipitor 80- p.o. daily. MRI and carotid Doppler. Await future findings to make changes plan of care as appropriate other stroke core measures are complete. (2) Type 2 diabetes mellitus Is this a current diagnosis for this admission?: Yes Plan: 05/08/2019-A1c in the a.m. Continue metformin once medication reconciliation is complete. Sliding scale insulin before meals and at bedtime with a carbohydrate diet (3) Hypercalcemia Is this a current diagnosis for this admission?: Yes Plan: 05/08/2019-mild. Most likely secondary to dehydration. Hydrate with normal saline at 125 mL/h repeat calcium level in a.m. (4) Acute renal failure Is this a current diagnosis for this admission?: Yes Plan: 05/08/2019-most likely prerenal in nature. Hydrate with normal saline 125 mL an hour overnight repeat renal panel in a.m. (5) Hypertension Is this a current diagnosis for this admission?: Yes Plan: 05/08/2019-continue all home medications once medication reconciliation has been complete - Time Time Spent with patient: 35 or more minutes
--- NOTE | 2019-05-08 20:21 | RADIOLOGY REPORT (SQ) ---
MR BRAIN WITHOUT IV CONTRAST EXAM DATE: 05/08/2019 12:00 AM CDT HISTORY: TIA. COMPARISON: CT scan from earlier the same day. TECHNIQUE: Multisequence, multiplanar MR imaging of the brain was performed without the administration of intravenous gadolinium. FINDINGS: The ventricles and sulci are normal in size. Scattered areas of T2/FLAIR hyperintense foci are seen in the supratentorial white matter, likely representing chronic microvascular ischemia. There is no acute infarction, intracranial hemorrhage, extra-axial fluid collection, or mass. The brainstem, posterior fossa, and cervicomedullary junction are preserved. The intravascular flow voids are preserved. The orbits are unremarkable. No abnormality of the skull base or calvarium is seen. The paranasal sinuses are clear. IMPRESSION: 1. No acute infarction. 2. Senescent changes with chronic microvascular ischemia.
--- NOTE | 2019-05-08 21:28 | EKG REPORT ---
SEVERITY:- OTHERWISE NORMAL ECG - SINUS TACHYCARDIA BORDERLINE LEFT AXIS DEVIATION : Confirmed by: Caren Taylor MD 08-May-2019 21:27:05
[2019-05-08] MEDS ORDERED: ATORVASTATIN CALCIUM 80 MG TABLET PO SCH (22:00)
[2019-05-08] MEDS: NORMAL SALINE 1000 ML 1,000 ML IV PRN (22:15)
[2019-05-08] MEDS: INSULIN REG, HUMAN 100 UNIT/ML 3 ML VIAL (PYX) SUBCUT SCH (22:15)
[2019-05-09] MEDS: NORMAL SALINE 1000 ML 1,000 ML IV PRN (05:21)
[2019-05-09 05:34] LABS: HEMATOCRIT 43.6 % (37.9-51.0); MEAN CORPUSCULAR HEMOGLOBIN 30.5 pg (27.0-33.4); MEAN CORPUSCULAR HGB CONC 33.6 g/dL (32.0-36.0); MEAN CORPUSCULAR VOLUME 91 fl (80-97); PLATELET COUNT 187 10^3/uL (150-450); RED CELL DISTRIBUTION WIDTH 13.5 % (11.5-14.0); WHITE BLOOD COUNT 10.5 10^3/uL (4.0-10.5)
[2019-05-09 05:52] LABS: ANION GAP 6 (5-19); BLOOD UREA NITROGEN 29 mg/dL (7-20); CALCIUM 9.5 mg/dL (8.4-10.2); CARBON DIOXIDE 25 mmol/L (22-30); CHLORIDE 104 mmol/L (98-107); GLUCOSE 147 mg/dL (75-110); POTASSIUM 3.5 mmol/L (3.6-5.0); TRIGLYCERIDES 161 mg/dL (<150)
[2019-05-09 05:53] LABS: CHOLESTEROL 90.24 mg/dL (0-200)
[2019-05-09 05:56] LABS: HEMOGLOBIN 14.7 g/dL (13.5-17.0)
[2019-05-09 06:03] LABS: DIRECT LDL 59 mg/dL (<100)
[2019-05-09 06:06] LABS: VLDL CHOLESTEROL 32.2 mg/dL (10-31)
[2019-05-09] MEDS: INSULIN REG, HUMAN 100 UNIT/ML 3 ML VIAL (PYX) SUBCUT SCH ×2 (07:58→12:39)
[2019-05-09 08:39] VITALS: BP 110/68
[2019-05-09] MEDS ORDERED: ASPIRIN 325 MG TABLET, ENT COATED PO SCH (10:00)
--- NOTE | 2019-05-09 10:53 | RADIOLOGY REPORT (SQ) ---
EXAM DESCRIPTION: CTA NECK COMPLETED DATE/TIME: 05/09/2019 10:40 am REASON FOR STUDY: CVA COMPARISON: None. TECHNIQUE: Axial dynamic scanning technique with dynamic contrast enhancement through the extra-crane chaser nial carotid and vertebral arteries. Multiplanar reconstruction. 3-D MIPS and Volume-rendered imag es acquired at the workstation and saved to PACS. Images are reviewed in soft tissue, bone, lung w indows. All CT scanners at this facility use dose modulation, iterative reconstruction, and/or weight based d osing when appropriate to reduce radiation dose to as low as reasonably achievable (ALARA). [facility]: Dose Right [facility]: CareDose [facility]: Dose Right [facility]: Teradose 4D [facility]: [employer] CONTRAST TYPE AND DOSE: Not recorded RENAL FUNCTION: Creatinine 1.5 LIMITATIONS: None. FINDINGS: AORTIC ARCH: Normal three-vessel origin. Bilateral subclavian arteries are patent. No d issection. RIGHT CAROTIDS: Patent common, internal and external carotid arteries without suggestion of significa nt stenosis or irregular plaque. No dissection. RIGHT VERTEBRAL: Patent. No dissection. LEFT CAROTIDS: Patent common, internal and external carotid arteries without suggestion of significan t stenosis or irregular plaque. No dissection. LEFT VERTEBRAL: Patent. No dissection. OTHER: No other significant finding. OTHER: 3-D reconstructions confirm findings. IMPRESSION: NORMAL CTA OF THE EXTRA-CRANIAL CAROTID AND VERTEBRAL ARTERIES. COMMENT: Quality ID #[id number]: Measurements of distal internal carotid diameter were used as the denomina tor for stenosis measurement. TECHNICAL DOCUMENTATION: JOB ID: [id number] Quality ID # [id number]: Final reports with documentation of one or more dose reduction techniques (e.g., Au tomated exposure control, adjustment of the mA and/or kV according to patient size, use of iterative reconstruction technique) 2010 [employer]- All Rights Reserved Reading location - IP/workstation name: [email or web address]
--- NOTE | 2019-05-09 15:21 | PDOC DISCHARGE SUMMARY ---
Impression - Admit/DC Date/PCP Admission Date/Primary Care Provider: 05/08/19 17:24 YARITZA ROSA MD Discharge Date: 05/09/19 - Discharge Diagnosis (1) Acute renal failure Is this a current diagnosis for this admission?: Yes (2) Hypertension Is this a current diagnosis for this admission?: Yes (3) TIA (transient ischemic attack) Is this a current diagnosis for this admission?: Yes (4) Type 2 diabetes mellitus Is this a current diagnosis for this admission?: Yes - Additional Information Resuscitation Status: Full Code Discharge Diet: Diabetic Discharge Activity: Activity As Tolerated, Balance Activity w/Rest Referrals: YARITZA ROSA MD [Primary Care Provider] - Follow up as needed Home Medications: Aspirin [Ecotrin 81 mg EC Tablet] 81 mg PO DAILY 11/11/12 Atorvastatin Calcium [Lipitor 40 mg Tablet] 40 mg PO QHS 11/11/12 Lisinopril [Prinivil 40 mg Tablet] 40 mg PO DAILY 11/11/12 Acetaminophen [Tylenol 325 mg Tablet] 650 mg PO Q4HP PRN tablet 05/09/19 Amlodipine Besylate [Norvasc 10 mg Tablet] 10 mg PO DAILY 05/09/19 Ezetimibe 10 mg PO DAILY 05/09/19 Famotidine [Pepcid 20 mg Tablet] 20 mg PO BID 05/09/19 Finasteride [Proscar 5 mg Tablet] 5 mg PO DAILY 05/09/19 Hydrochlorothiazide [Hydrodiuril 25 mg Tablet] 25 mg PO DAILY 05/09/19 Metformin HCl [Metformin HCl ER] 1,000 mg PO WSUPPER 05/09/19 Metformin HCl [Metformin HCl ER] 500 mg PO [id number] 05/09/19 History of Present Illiness History of Present Illness: Per H&P by Donny Edwards NP-C: LUCI NAQVI is a 69 year old male with possible stroke. Patient states he was walking in the patel around 130 and felt like he does have numbness to the right side of his face and left upper extremity. Patient also had a headache at that time but uncertain if the headache was due to hunger. Patient had no treatment prior to arrival no aggravating factors. Hospital Course Hospital Course: The patient was admitted to [facility] under continuous cardiac telemetry. Work-up for TIA/CVA included head CT, head MRI, neck CTA, EKG, and chest x-ray; all of which were benign. Laboratory evaluation included CBC (leukocytosis has resolved), coags which were normal, and chemistry demonstrating resolution of his WALTER. Hemoglobin A1c found to be 7.2%. Troponin is negative. Lipid panel reveals HDL 22, LDL 59, triglycerides 161, total cholesterol 90. The patient's symptoms had resolved upon arrival to the emergency department. He has had no further symptoms and is now requesting to discharge home. Patient is discharged home in stable condition. He is advised to follow-up with his primary care provider within 1 week. He is instructed to take his medications as prescribed. He is instructed to eat a consistent carb/heart healthy diet and to drink plenty of fluids. He is instructed to have a partner with him on a hunting trip and to increase his fluid intake during activity. He is encouraged to return to the emergency department as needed for concerning symptoms. Physical Exam Vital Signs: Temp Pulse Resp BP Pulse Ox 97.9 F 77 16 110/68 96 05/09/19 12:34 05/09/19 12:34 05/09/19 12:34 05/09/19 12:34 05/09/19 12:34 Intake & Output 05/08/19 05/09/19 05/10/19 06:59 06:59 06:59 Intake Total 1888 Balance 1888 Weight 86.4 kg General appearance: PRESENT: no acute distress, well-developed, well-nourished Head exam: PRESENT: atraumatic, normocephalic Eye exam: PRESENT: conjunctiva pink, EOMI, PERRLA. ABSENT: scleral icterus Ear exam: PRESENT: normal external ear exam Mouth exam: PRESENT: moist, tongue midline Teeth exam: PRESENT: poor dentation Neck exam: ABSENT: carotid bruit, JVD, lymphadenopathy, thyromegaly Respiratory exam: PRESENT: clear to auscultation [place]. ABSENT: rales, rhonchi, wheezes Cardiovascular exam: PRESENT: RRR. ABSENT: diastolic murmur, rubs, systolic murmur Pulses: PRESENT: normal dorsalis pedis pul Vascular exam: PRESENT: normal capillary refill GI/Abdominal exam: PRESENT: normal bowel sounds, soft. ABSENT: distended, guarding, mass, organolmegaly, rebound, tenderness Rectal exam: PRESENT: deferred Extremities exam: PRESENT: full ROM. ABSENT: calf tenderness, clubbing, pedal edema Musculoskeletal exam: PRESENT: ambulatory Neurological exam: PRESENT: alert, awake, oriented to person, oriented to place, oriented to time, oriented to situation, CN II-XII grossly intact. ABSENT: motor sensory deficit Psychiatric exam: PRESENT: appropriate affect, normal mood. ABSENT: homicidal ideation, suicidal ideation Skin exam: PRESENT: dry, intact, warm. ABSENT: cyanosis, rash Results Laboratory Results: WBC 10.5 10^3/uL (4.0-10.5) 05/09/19 04:32 RBC 4.80 10^6/uL (4.35-5.55) 05/09/19 04:32 Hgb 14.7 g/dL (13.5-17.0) D 05/09/19 04:32 Hct 43.6 % (37.9-51.0) 05/09/19 04:32 MCV 91 fl (80-97) 05/09/19 04:32 MCH 30.5 pg (27.0-33.4) 05/09/19 04:32 MCHC 33.6 g/dL (32.0-36.0) 05/09/19 04:32 RDW 13.5 % (11.5-14.0) 05/09/19 04:32 Plt Count 187 10^3/uL (150-450) 05/09/19 04:32 Lymph % (Auto) 18.7 % (13-45) 05/08/19 15:50 [place] % (Auto) 10.3 % (3-13) 05/08/19 15:50 Eos % (Auto) 2.6 % (0-6) 05/08/19 15:50 Baso % (Auto) 1.3 % (0-2) 05/08/19 15:50 Absolute Neuts (auto) 9.3 10^3/uL (1.7-8.2) H 05/08/19 15:50 Absolute Lymphs (auto) 2.6 10^3/uL (0.5-4.7) 05/08/19 15:50 Absolute Monos (auto) 1.4 10^3/uL (0.1-1.4) 05/08/19 15:50 Absolute Eos (auto) 0.4 10^3/uL (0.0-0.6) 05/08/19 15:50 Absolute Basos (auto) 0.2 10^3/uL (0.0-0.2) 05/08/19 15:50 Seg Neutrophils % 67.1 % (42-78) 05/08/19 15:50 PT 13.4 SEC (11.4-15.4) 05/08/19 15:50 INR 1.02 05/08/19 15:50 APTT 29.6 SEC (23.5-35.8) 05/08/19 15:50 Sodium 135.4 mmol/L (137-145) L 05/09/19 04:32 Potassium 3.5 mmol/L (3.6-5.0) L 05/09/19 04:32 Chloride 104 mmol/L (98-107) 05/09/19 04:32 Carbon Dioxide 25 mmol/L (22-30) 05/09/19 04:32 Anion Gap 6 (5-19) 05/09/19 04:32 BUN 29 mg/dL (7-20) H 05/09/19 04:32 Creatinine 0.98 mg/dL (0.52-1.25) 05/09/19 04:32 Est GFR ( Amer) > 60 (>60) 05/09/19 04:32 Est GFR (MDRD) Non-Af > 60 (>60) 05/09/19 04:32 Glucose 147 mg/dL (75-110) H 05/09/19 04:32 POC Glucose 172 mg/dL (70-110) H 05/09/19 07:54 Hemoglobin A1c % 7.2 % (4.7-6.0) H 05/09/19 04:32 Calcium 9.5 mg/dL (8.4-10.2) 05/09/19 04:32 Total Bilirubin 0.5 mg/dL (0.2-1.3) 05/08/19 15:50 Direct Bilirubin 0.1 mg/dL (0.0-0.4) 05/08/19 15:50 Neonat Total Bilirubin Not Reportable 05/08/19 15:50 Neonat Direct Bilirubin Not Reportable 05/08/19 15:50 Neonat Indirect Bili Not Reportable 05/08/19 15:50 AST 42 U/L (17-59) 05/08/19 15:50 ALT 57 U/L (<50) 05/08/19 15:50 Alkaline Phosphatase 86 U/L (38-126) 05/08/19 15:50 Creatine Kinase 140 U/L (55-170) 05/08/19 15:50 CK-MB (CK-2) 1.44 ng/mL (<4.55) 05/08/19 15:50 Troponin I < 0.012 ng/mL 05/08/19 15:50 Total Protein 8.7 g/dL (6.3-8.2) H 05/08/19 15:50 Albumin 4.9 g/dL (3.5-5.0) 05/08/19 15:50 Triglycerides 161 mg/dL (<150) H 05/09/19 04:32 Cholesterol 90.24 mg/dL (0-200) 05/09/19 04:32 LDL Cholesterol Direct 59 mg/dL (<100) 05/09/19 04:32 VLDL Cholesterol 32.2 mg/dL (10-31) H 05/09/19 04:32 HDL Cholesterol 22 mg/dL (>40) L 05/09/19 04:32 05/08/19 15:50 CK-MB (CK-2) 1.44 Troponin I < 0.012 Impressions: Head MRI 05/08/19 00:00 IMPRESSION: 1. No acute infarction. 2. Senescent changes with chronic microvascular ischemia. Chest X-Ray 05/08/19 15:06 IMPRESSION: NO ACUTE RADIOGRAPHIC FINDING IN THE CHEST. Head CT 05/08/19 15:06 IMPRESSION: There is generally mild white matter hypodensity with a more focal area in the posterior right hull radiata (series 2, image 20). Although such lesions are in general likely to represent chronic small vessel white matter disease, this particular area corresponds to stated clinical symptomatology. Consider MRI to more sensitively evaluate for acute diffusion restricting infarction EVIDENCE OF ACUTE STROKE: NO. Neck CTA 05/09/19 00:00 IMPRESSION: NORMAL CTA OF THE EXTRA-CRANIAL CAROTID AND VERTEBRAL ARTERIES. Plan Plan of Treatment: Patient is discharged home with self-care. He is advised to follow-up with his primary care provider within 1 week. He is instructed to take his medications as prescribed, eat a consistent carb/heart healthy diet, and drink plenty of water. He is encouraged to return to the emergency department as needed for concerning symptoms. Time Spent: Greater than 30 Minutes Stroke Is this a Stroke Patient?: No Acute Heart Failure - Is this a Heart Failure Patient?: No
== END 2019-05-09 12:45 | disposition home or self-care (01) ==
LOC: ER 14:50 → EH 17:24 → INTOOBSV 17:24 → 3W 19:15
PROVIDERS: ADMIT Family Medicine; ATTEND Family Medicine
DX: G45.9 Transient cerebral ischemic attack, unspecified (principal); N17.9 Acute kidney failure, unspecified; I10 Essential (primary) hypertension; E11.9 Type 2 diabetes mellitus without complications; R51 Headache; D72.829 Elevated white blood cell count, unspecified; E83.52 Hypercalcemia; E83.119 Hemochromatosis, unspecified; E78.5 Hyperlipidemia, unspecified; Z79.82 Long term (current) use of aspirin; Z79.899 Other long term (current) drug therapy; Z79.84 Long term (current) use of oral hypoglycemic drugs
CPT/HCPCS: 93005; 99285; 36415 ×2; 82553; 82962 ×2; 82550; 85025; 85027; 85610; 85730; 80048; 80053; 84484; 83036; 80061; 70551; 71045; 70450; 70498; 93010; G0378 ×3; A9270 ×3; J7030 ×2

== ENCOUNTER 2020-02-29 13:53 | Emergency (ER) | payer MEDICARE ==
[2020-02-29] MEDS ORDERED: FENTANYL CITRATE INJ/PF 100 MCG/2 ML AMPUL IV ONE (14:27)
[2020-02-29] MEDS ORDERED: NORMAL SALINE 1000 ML 1,000 ML IV ONE (14:28)
--- NOTE | 2020-02-29 14:32 | ER Document Report ---
ED Medical Screen (RME) - General Chief Complaint: Abdominal Pain Stated Complaint: ABDOMINAL PAIN Time Seen by Provider: 02/29/20 14:22 Primary Care Provider: YARITZA ROSA MD [Primary Care Provider] - Follow up as needed TRAVEL OUTSIDE OF THE [place] IN LAST 30 DAYS: No - HPI Notes: 02/29/20 14:28 70 year old male with a history of type 2 diabetes, hypertension, hypercholester olemia, diverticulitis, nephrolithiasis presents to the emergency room today with 3 days of left lower quadrant abdominal pain left flank pain that became worse after mowing his lawn today with the pain radiating to his left lower testicle. He reports pain is sharp and stabbing, pain is constant. Patient reports he started to vomit today. Has not tried any [id number] medications, worse with time. Denies any chest pain shortness of breath, diarrhea. Dr. Rosa is his PCP, unable to see him today I have greeted and performed a rapid initial assessment of this patient. A comprehensive ED assessment and evaluation of the patient, analysis of test results and completion of the medical decision making process will be conducted by additional ED providers. PHYSICAL EXAMINATION: GENERAL: Well-appearing, well-nourished and in mid distress HEAD: Atraumatic, normocephalic. EYES: Pupils equal round extraocular movements intact, conjunctiva are normal. NECK: Normal range of motion CV: s1, s2 regular LUNGS: No respiratory distress abd: LLQ abd pain, periumbilical abdominal pain, left flank tenderness appreciated - Related Data Allergies/Adverse Reactions: codeine [Codeine] Allergy (Severe, Verified 02/29/20 14:24) swelling/redness Past Medical History - Past Medical History Cardiac Medical History: Reports: Hx Hypercholesterolemia, Hx Hypertension Denies: Hx Coronary Artery Disease, Hx Heart Attack Pulmonary Medical History: Reports: Hx Pneumonia - 30years ago Denies: Hx Asthma, Hx Bronchitis, Hx COPD Neurological Medical History: Denies: Hx Cerebrovascular Accident, Hx Seizures Endocrine Medical History: Reports: Hx Diabetes Mellitus Type 2 Renal/ Medical History: Denies: Hx Peritoneal Dialysis GI Medical History: Reports: Hx Diverticulitis. Denies: Hx Hepatitis, Hx Hiatal Hernia, Hx Ulcer Musculoskeltal Medical History: Reports Hx Arthritis Infectious Medical History: Denies: Hx Hepatitis Past Surgical History: Denies: Hx Open Heart Surgery, Hx Pacemaker - Immunizations Immunizations up to date: Yes Hx Diphtheria, Pertussis, Tetanus Vaccination: Yes Physical Exam - Vital signs Vitals: Temp Pulse Resp BP Pulse Ox 98.1 F 62 20 173/92 H 99 02/29/20 14:00 02/29/20 14:00 02/29/20 14:00 02/29/20 14:00 02/29/20 14:00 Course - Vital Signs Vital signs: Temp Pulse Resp BP Pulse Ox 98.1 F 62 20 173/92 H 99 02/29/20 14:00 02/29/20 14:00 02/29/20 14:00 02/29/20 14:00 02/29/20 14:00 Doctor's Discharge - Discharge Referrals: YARITZA ROSA MD [Primary Care Provider] - Follow up as needed
[2020-02-29 15:01] LABS: ABSOLUTE BASOPHILS # (AUTO) 0.1 10^3/uL (0.0-0.2); ABSOLUTE EOSINOPHILS # (AUTO) 0.5 10^3/uL (0.0-0.6); ABSOLUTE LYMPHOCYTES (AUTO) 2.6 10^3/uL (0.5-4.7); ABSOLUTE MONOCYTES (AUTO) 1.2 10^3/uL (0.1-1.4); ABSOLUTE NEUT (AUTO) 6.3 10^3/uL (1.7-8.2); BASOPHILS % (AUTO) 0.9 % (0-2); EOSINOPHILS % (AUTO) 4.6 % (0-6); HEMATOCRIT 46.1 % (37.9-51.0); HEMOGLOBIN 16.1 g/dL (13.5-17.0); LYMPHOCYTES % (AUTO) 24.5 % (13-45); MEAN CORPUSCULAR HEMOGLOBIN 31.7 pg (27.0-33.4); MEAN CORPUSCULAR VOLUME 91 fl (80-97); MONOCYTES % (AUTO) 11.1 % (3-13); PLATELET COUNT 235 10^3/uL (150-450); RED CELL DISTRIBUTION WIDTH 14.3 % (11.5-14.0); SEGMENTED NEUTROPHILS % (AUTO) 58.9 % (42-78); TOTAL CELLS COUNTED % (AUTO) 100 %; WHITE BLOOD COUNT 10.7 10^3/uL (4.0-10.5)
[2020-02-29 15:17] LABS: APPEARANCE,URINE SLIGHTLY-CLOUDY; BILIRUBIN,URINE NEGATIVE (NEGATIVE); COLOR,URINE YELLOW; GLUCOSE, URINE NEGATIVE (NEGATIVE); KETONES,URINE NEGATIVE (NEGATIVE); LEUKOCYTE ESTERASE,URINE NEGATIVE (NEGATIVE); NITRITE,URINE NEGATIVE (NEGATIVE); PROTEIN,URINE 30 mg/dL (NEGATIVE); URINE SPECIFIC GRAVITY 1.024; UROBILINOGEN,URINE NEGATIVE mg/dL (<2.0)
[2020-02-29 15:27] LABS: ALBUMIN 4.4 g/dL (3.5-5.0); ALKALINE PHOSPHATASE 80 U/L (38-126); ANION GAP 10 (5-19); ASPARTATE AMINO TRANSFERASE 32 U/L (17-59); BILIRUBIN,DIRECT 0.1 mg/dL (0.0-0.4); BILIRUBIN,TOTAL 0.7 mg/dL (0.2-1.3); BLOOD UREA NITROGEN 20 mg/dL (7-20); CALCIUM 9.7 mg/dL (8.4-10.2); CARBON DIOXIDE 28 mmol/L (22-30); CHLORIDE 104 mmol/L (98-107); GLUCOSE 115 mg/dL (75-110); POTASSIUM 4.1 mmol/L (3.6-5.0)
[2020-02-29] MEDS ORDERED: KETOROLAC TROMETHAMINE INJ/PF 30 MG/1 ML SDV IV ONE (15:57)
[2020-02-29] MEDS ORDERED: ONDANSETRON HCL INJ/PF 4 MG/2 ML SDV IV ONE (15:57)
--- NOTE | 2020-02-29 15:59 | ER Document Report ---
ED GI/ - General Chief Complaint: Abdominal Pain Stated Complaint: ABDOMINAL PAIN Time Seen by Provider: 02/29/20 14:22 Primary Care Provider: [facility] [Provider Group] - Follow up tomorrow YARITZA ROSA MD [Primary Care Provider] - Follow up as needed Mode of Arrival: Ambulatory Information source: Patient Notes: Patient presents complaining of left lower quadrant abdominal pain for the past 3 days. Patient states that today he started to radiate around to left flank area. Patient denies any fever or urinary symptoms. Patient does complain of nausea. TRAVEL OUTSIDE OF THE [place] IN LAST 30 DAYS: No - HPI Patient complains to provider of: Abdominal pain, Flank pain. No: Vomiting Onset: Other - 3 days Timing/Duration: Worse Quality of pain: Sharp, Stabbing Pain Level: 5 Location: LLQ, Left flank Associated symptoms: Nausea. denies: Dysuria, Fever, Urinary hesitancy, Urinary frequency, Urinary retention, Urinary urgency, Vomiting Exacerbated by: Denies Relieved by: Denies Similar symptoms previously: No Recently seen / treated by doctor: No - Related Data Allergies/Adverse Reactions: codeine [Codeine] Allergy (Severe, Verified 02/29/20 14:24) swelling/redness Past Medical History - General Information source: Patient - Social History Smoking Status: Former Smoker Chew tobacco use (# tins/day): No Frequency of alcohol use: None Drug Abuse: None Occupation: None Lives with: Spouse/Significant other Family History: None Patient has homicidal ideation: No - Past Medical History Cardiac Medical History: Reports: Hx Hypercholesterolemia, Hx Hypertension Denies: Hx Coronary Artery Disease, Hx Heart Attack Pulmonary Medical History: Reports: Hx Pneumonia - 30years ago Denies: Hx Asthma, Hx Bronchitis, Hx COPD Neurological Medical History: Denies: Hx Cerebrovascular Accident, Hx Seizures Endocrine Medical History: Reports: Hx Diabetes Mellitus Type 2 Renal/ Medical History: Reports: Hx Kidney Stones. Denies: Hx Peritoneal Dialysis GI Medical History: Reports: Hx Diverticulitis. Denies: Hx Hepatitis, Hx Hiatal Hernia, Hx Ulcer Musculoskeletal Medical History: Reports Hx Arthritis Infectious Medical History: Denies: Hx Hepatitis Past Surgical History: Reports: Hx Orthopedic Surgery - Immunizations Immunizations up to date: Yes Hx Diphtheria, Pertussis, Tetanus Vaccination: Yes Review of Systems - Review of Systems Constitutional: No symptoms reported. denies: Fever, Recent illness EENT: No symptoms reported Cardiovascular: No symptoms reported Respiratory: No symptoms reported Gastrointestinal: Abdominal pain, Nausea. denies: Diarrhea, Vomiting Genitourinary: Flank pain. denies: Dysuria, Hematuria Male Genitourinary: No symptoms reported Musculoskeletal: No symptoms reported Skin: No symptoms reported Hematologic/Lymphatic: No symptoms reported Neurological/Psychological: No symptoms reported Physical Exam - Vital signs Vitals: Temp Pulse Resp BP Pulse Ox 98.1 F 62 20 173/92 H 99 02/29/20 14:00 02/29/20 14:00 02/29/20 14:00 02/29/20 14:00 02/29/20 14:00 - Notes Notes: PHYSICAL EXAMINATION: GENERAL: Well-appearing appears uncomfortable HEAD: Atraumatic, normocephalic. EYES: Pupils equal round and reactive to light, extraocular movements intact, sclera anicteric, conjunctiva are normal. ENT: nares patent, oropharynx clear without exudates. Moist mucous membranes. NECK: Normal range of motion, supple without lymphadenopathy LUNGS: CTAB and equal. No wheezes rales or rhonchi. HEART: Regular rate and rhythm without murmurs ABDOMEN: Soft, left lower quadrant tenderness. Mild guarding, no rebound EXTREMITIES: Normal range of motion, no pitting edema. No cyanosis. BACK: Left CVA tenderness, no midline tenderness, no step-off or deformity. NEUROLOGICAL: Cranial nerves grossly intact. Normal speech. Normal gait. PSYCH: Normal mood, normal affect. SKIN: Warm, Dry, normal turgor, no rashes or lesions noted Course - Re-evaluation Re-evalutation: 02/29/20 19:02 Patient with left ureteral stone, no UTI, no fever, patient with normal renal function. Pain is controlled at this time. Will encourage outpatient follow- up with urology. Good return precautions discussed with patient. - Vital Signs Vital signs: Temp Pulse Resp BP Pulse Ox 97.8 F 76 18 170/84 H 94 02/29/20 19:00 02/29/20 19:00 02/29/20 19:00 02/29/20 19:00 02/29/20 19:00 - Laboratory Result Diagrams: 02/29/20 14:40 02/29/20 14:40 Laboratory results interpreted by me: 02/29/20 02/29/20 02/29/20 14:40 14:40 14:40 WBC 10.7 H RDW 14.3 H Glucose 115 H Urine Protein 30 H Urine Blood LARGE H 02/29/20 19:03 Labs- All tests 24 hr 02/29/20 02/29/20 02/29/20 14:40 14:40 14:40 WBC 10.7 H RBC 5.10 Hgb 16.1 Hct 46.1 MCV 91 MCH 31.7 MCHC 35.0 RDW 14.3 H Plt Count 235 Lymph % (Auto) 24.5 [place] % (Auto) 11.1 Eos % (Auto) 4.6 Baso % (Auto) 0.9 Absolute Neuts (auto) 6.3 Absolute Lymphs (auto) 2.6 Absolute Monos (auto) 1.2 Absolute Eos (auto) 0.5 Absolute Basos (auto) 0.1 Seg Neutrophils % 58.9 Sodium 142.4 Potassium 4.1 Chloride 104 Carbon Dioxide 28 Anion Gap 10 BUN 20 Creatinine 1.00 Est GFR ( Amer) > 60 Est GFR (MDRD) Non-Af > 60 Glucose 115 H Calcium 9.7 Total Bilirubin 0.7 Direct Bilirubin 0.1 Neonat Total Bilirubin Not Reportable Neonat Direct Bilirubin Not Reportable Neonat Indirect Bili Not Reportable AST 32 ALT 29 Alkaline Phosphatase 80 Total Protein 8.0 Albumin 4.4 Lipase 32.3 Urine Color YELLOW Urine Appearance SLIGHTLY-CLOUDY Urine pH 5.0 Ur Specific [place] 1.024 Urine Protein 30 H Urine Glucose (UA) NEGATIVE Urine Ketones NEGATIVE Urine Blood LARGE H Urine Nitrite NEGATIVE Urine Bilirubin NEGATIVE Urine Urobilinogen NEGATIVE Ur Leukocyte Esterase NEGATIVE Urine WBC (Auto) 3 Urine RBC (Auto) 131 Urine Mucus (Auto) FEW Urine Ascorbic Acid NEGATIVE - Diagnostic Test Radiology reviewed: Reports reviewed Discharge - Discharge Clinical Impression: Left ureteral stone, Pelvic pain Condition: Stable Disposition: HOME, SELF-CARE Additional Instructions: Return immediately for any new or worsening symptoms: Worsening pain, fever, inability to void or any concerning new symptoms Followup with your primary care provider, call tomorrow to make a followup appointment Follow-up with urology, call tomorrow to make a follow-up appointment KIDNEY STONE: You are passing or have passed a kidney stone. These stones are usually due to increased calcium or uric acid concentrations in your urine. Stones within the kidney itself are not painful. The pain occurs as the stone leaves the kidney to pass down the long tube, called the ureter, leading to the bladder. If the stone is small, it will usually pass by itself. Most patients can pass the stone at home. You will usually receive medications for pain, nausea or vomiting, and sometimes a medication to assist in passing the kidney stone. However, if the pain is very severe or if vomiting prevents you from taking oral pain medications, you may need to return for further treatment. Drink three or four quarts of fluids per day. You will be given pain medic ation (if needed) and urine strainers. Strain all your urine to see if the stone passes. If your doctor has asked you to bring the stone in for analysis, return with the stone once it has passed. Return if pain or vomiting become severe, if you develop a high fever, if you are unable to pass your urine, or if other unusual symptoms occur. TORADOL INJECTION: You have been given an injection of ketorolac tromethamine (Toradol). This is an excellent, safe drug for pain control. It also has potent antiinflammatory action. You should have significant pain relief within about one hour. Toradol is not addicting and is non-sedating. It does not interfere with driving or work. Call or return if you develop itching, hives, shortness of breath, or rash. PAIN MEDICATION INJECTION: You have received an injection of a pain medication. You should experience significant pain relief within 45 minutes. This drug is a narcotic -- it will impair your judgement, slow your reaction time and make you sleepy (as well as relieve your pain). Narcotics also can cause nausea. You should not drive, work with machinery, or perform any task requiring mental alertness until all effects of the medication are gone -- six to eight hours. Do not take any alcohol, or sedatives, and do not take any other medication without checking with your physician. AN[place] MEDICATION: You have been given a medication to suppress nausea and vomiting. This type of medication can be given as a shot, pill, or suppository. It will usually last for many hours. Pills and shots usually last six to eight hours, suppositories last about 12 hours. For the typical illness, only one or two doses of the medication may be necessary. Mild lightheadedness may occur. This type of medicine can cause drowsiness. Do not drive or operate dangerous machinery while under its infl uence. Do not mix with alcohol. See your doctor at once if you have muscle spasms or tightness, or uncontrollable motions (particularly of the neck, mouth, or jaw). Persistent vomiting or severe lightheadedness should also be evaluated by the physician. ORAL NARCOTIC MEDICATION: You have been given a prescription for pain control. This medication is a narcotic. It's best taken with food, as nausea can result if taken on an empty stomach. Don't operate machinery or drive within six hours of taking this medication. Do not combine this medicine with alcohol, or with any medication which can cause sedation (such as cold tablets or sleeping pills) unless you get permission from the physician. Narcotics tend to cause constipation. If possible, drink plenty of fluids and eat a diet high in fiber and fruits. Please be aware that prescription narcotics also have the potential for abuse. People become addicted to these medications because of the general sense of wellbeing that they induce. This feeling along with a significant reduction in tension, anxiety, and aggression provides a stimulating seductive quality to these drugs. Once your pain is under control, we encourage you to discard your unused narcotics. FOLLOW-UP CARE: If you have been referred to a physician for follow-up care, call the physicians office for an appointment as you were instructed or within the next two days. If you experience worsening or a significant change in your symptoms, notify the physician immediately or return to the Emergency Department at any time for re-evaluation. Prescriptions: Hydrocodone/Acetaminophen [[place] 5-325 mg Tablet] 1 tab PO Q6 PRN #15 tablet PRN Reason: Ondansetron [Zofran Odt 4 mg Tablet] 1 tab PO Q6H #15 tab.rapdis Referrals: YARITZA ROSA MD [Primary Care Provider] - Follow up as needed [facility] [Provider [facility]] - Follow up tomorrow
--- NOTE | 2020-02-29 17:52 | RADIOLOGY REPORT (SQ) ---
EXAM DESCRIPTION: CT ABD/PELVIS WITH IV ONLY IMAGES COMPLETED DATE/TIME: 02/29/2020 5:27 pm REASON FOR STUDY: LLQ ABD PAIN, L TESTICULAR PAIN, +VOMITING COMPARISON: None. TECHNIQUE: CT scan of the abdomen and pelvis performed using helical scanning technique with dynamic intravenous contrast injection. No oral contrast. Images reviewed with lung, soft tissue, and bone windows. Reconstructed coronal and sagittal MPR images reviewed. Delayed images for evaluation of the urinary system also acquired. All images stored on PACS. All CT scanners at this facility use dose modulation, iterative reconstruction, and/or weight based d osing when appropriate to reduce radiation dose to as low as reasonably achievable (ALARA). [facility]: Dose Right [facility]: CareDose [facility]: Dose Right [facility]: Teradose 4D [facility]: Picosun CONTRAST TYPE AND DOSE: contrast/concentration: Isovue 350.00 mmol/ml; Total Contrast Delivered: 96. 0 ml; Total Saline Delivered: 52.4 ml RENAL FUNCTION: BUN 20 creatinine 1 RADIATION DOSE: CT Rad equipment meets quality standard of care and radiation dose reduction techniq ues were employed. CTDIvol: 12.3 - 16.2 mGy. DLP: 1503 mGy-cm.. LIMITATIONS: None. FINDINGS: LOWER CHEST: No significant findings. No nodules or infiltrates. LIVER: There appears to be mild hepatic hypo attenuation. No mass. SPLEEN: Normal size. No focal lesions. PANCREAS: No masses. No significant calcifications. No adjacent inflammation or peripancreatic fluid collections. Pancreatic duct not dilated. GALLBLADDER: No identified stones by CT criteria. No inflammatory changes to suggest cholecystitis. ADRENAL GLANDS: No significant masses or asymmetry. RIGHT KIDNEY AND URETER: No solid masses. No significant calcifications. No hydronephrosis or hyd roureter. LEFT KIDNEY AND URETER: No solid masses. 3 mm distal left ureteral calculus. See image 73 series 5 . Mild hydronephrosis/ hydroureter. AORTA AND VESSELS: No aneurysm. No dissection. Renal arteries, SMA, celiac without stenosis. RETROPERITONEUM: No retroperitoneal adenopathy, hemorrhage or masses. BOWEL AND PERITONEAL CAVITY: Extensive sigmoid diverticulosis with no associated inflammation. APPENDIX: Normal. PELVIS: No mass. No free fluid. Normal bladder. ABDOMINAL WALL: No masses. No hernias. BONES: No significant or acute findings. OTHER: No other significant finding. IMPRESSION: 1. 3 mm distal left ureteral calculus with hydronephrosis/ hydroureter. 2. Mild hepatic steatosis. 3. Diverticulosis coli. TECHNICAL DOCUMENTATION: JOB ID: [id number] Quality ID # [id number]: Final reports with documentation of one or more dose reduction techniques (e.g., Au tomated exposure control, adjustment of the mA and/or kV according to patient size, use of iterative reconstruction technique) 2010 [employer]- All Rights Reserved Reading location - IP/workstation name: [email or web address]
--- NOTE | 2020-02-29 18:38 | RADIOLOGY REPORT (SQ) ---
EXAM DESCRIPTION: U/S SCROTUM W/DOPPLER IMAGES COMPLETED DATE/TIME: 02/29/2020 5:54 pm REASON FOR STUDY: LLQ abd pain, L testicular pain, +vomiting COMPARISON: None. TECHNIQUE: Static and realtime vazquez scale imaging of the scrotum and testes. Selected color Doppler and spectral images recorded to document blood flow. LIMITATIONS: None. FINDINGS: RIGHT: TESTICLE: Normal size, 4.8 cm. Normal echotexture. Normal blood flow. No mass. EPIDIDYMIS: Normal, 15 mm. HYDROCELE OR VARICOCELE: No. HERNIA OR EXTRA-TESTICULAR MASS: No. OTHER: No other significant finding. LEFT: TESTICLE: Normal size, 4.5 cm. Normal echotexture. Normal blood flow. No mass. EPIDIDYMIS: Normal, 12 mm. HYDROCELE OR VARICOCELE: No. HERNIA OR EXTRA-TESTICULAR MASS: No. OTHER: Question 4 x 4 x 3 mm testicular appendage. IMPRESSION: Essentially normal study. Cannot exclude a small testicular or epididymal appendage on the left. TECHNICAL DOCUMENTATION: JOB ID: [id number] 2010 [email or web address] Rights Reserved Reading location - IP/workstation name: [email or web address]
[2020-02-29 19:01] VITALS: BP 170/84
== END 2020-02-29 19:16 | disposition home or self-care (01) ==
LOC: ER 13:53
DX: N13.2 Hydronephrosis with renal and ureteral calculous obstruction (principal); K76.0 Fatty (change of) liver, not elsewhere classified; K57.30 Diverticulosis of large intestine without perforation or abscess without bleeding; R10.32 Left lower quadrant pain; R10.814 Left lower quadrant abdominal tenderness; R10.9 Unspecified abdominal pain; R10.2 Pelvic and perineal pain; R11.0 Nausea; I10 Essential (primary) hypertension; E11.9 Type 2 diabetes mellitus without complications; Z88.6 Allergy status to analgesic agent; Z88.5 Allergy status to narcotic agent; Z87.891 Personal history of nicotine dependence; Z87.19 Personal history of other diseases of the digestive system
CPT/HCPCS: 99285; 96361; 96374; 96375; 36415; 83690; 85025; 80053; 81001; 76870; 93976; 74177; J3010; J1885; J2405; J7030